=== PATIENT | male | born 1975 | race Caucasian/White ===

== ENCOUNTER 2017-09-09 16:44 | Inpatient (IN) | payer OTHER ==
[~2017-09-09] VITALS: Ht 182.9 cm; Wt 81.7 kg
[2017-09-09 16:45] VITALS: O2SAT 97
[2017-09-09] MEDS ORDERED: DIPHTH/TETANUS/ACEL PERTUSSIS (BOOSTER) 0.5 ML VIAL/PFS IM ONE ×2 (16:49→17:08)
[2017-09-09] MEDS ORDERED: PROPOFOL 200 MG/20 ML AMP ONE (16:49)
[2017-09-09] MEDS ORDERED: LIDOCAINE HCL 2% 50 ML VIAL ONE (16:49)
[2017-09-09] MEDS ORDERED: ceFAZolin 2 GM PREMIX 50 ML ONE (16:49)
[2017-09-09 17:08] LABS: AUTOMATED NEUTROPHIL # 6.1 TH/MM3 (1.8-7.7); BASOPHIL % 0.3 % (0.0-2.0); EOSINOPHIL # 0.1 TH/MM3 (0-0.4); HEMATOCRIT 44.7 % (39.0-51.0); LYMPH % 38.4 % (9.0-44.0); LYMPHOCYTE # 4.3 TH/MM3 (1.0-4.8); MEAN CELL VOLUME 95.2 FL (80.0-100.0); MEAN CORPUSCULAR HEMOGLOBIN 31.9 PG (27.0-34.0); MEAN CORPUSCULAR HGB CONC 33.5 % (32.0-36.0); MEAN PLATELET VOLUME 8.2 FL (7.0-11.0); MONOCYTE # 0.7 TH/MM3 (0-0.9); NEUT % 54.3 % (16.0-70.0); PLATELET COUNT 319 TH/MM3 (150-450); RED BLOOD COUNT 4.69 MIL/MM3 (4.50-5.90); RED CELL DISTRIBUTION WIDTH 13.3 % (11.6-17.2); WHITE BLOOD COUNT 11.3 TH/MM3 (4.0-11.0)
[2017-09-09] MEDS ORDERED: ceFAZolin 2 GM PREMIX 50 ML IV STA (17:08)
[2017-09-09] MEDS ORDERED: NALOXONE HCL 0.4 MG/ML AMP IV PUSH PRN ×2 (17:15)
[2017-09-09] MEDS ORDERED: Post-op Orders (for Pharmacy) XX ONE (17:15)
[2017-09-09] MEDS ORDERED: SODIUM CHLORIDE 0.9% FLUSH 10 ML FLUSH IV FLUSH PRN (17:15)
[2017-09-09] MEDS ORDERED: PROPOFOL 500 MG/50 ML BTL IV ONE (17:15)
[2017-09-09] MEDS ORDERED: oxyCODONE/ACETAMINOPHEN 5 MG/325 MG TAB PO PRN (17:15)
--- NOTE | 2017-09-09 17:19 | PD ---
HPI Chief Complaint: Trauma (Alert) Time Seen by Provider: 16:47 Travel History International Travel<30 days: No Contact w/Intl Traveler<30days: No Traveled to known affect area: No History of Present Illness HPI The patient is a 41-year-old male who presents to the emergency department as a level II trauma alert. According to EMS the patient was inspecting a roof when he fell through a metal roof, approximately 12-18 feet, landing on the top corner of a door. The top quarter the door apparently struck the patient in the left chest wall and then went down across the lower back. The patient then fell to the ground. He denies any loss of consciousness , headache, or neck pain. He does complain of left-sided rib pain and chest pain which shortness of breath. He also complains of lower back pain. He denies any weakness or numbness of the upper or lower extremities. Symptoms are moderate, exacerbated after falling through a roof, and there are no current alleviating factors. Patient was called a level II trauma alert based on press loader discretion and the fact that the patient fell more than 10 feet through a roof. [facility] Past Medical History Medical History: Denies Significant Hx Past Surgical History Surgical History: No Previous Surgery Social History Tobacco Use: No Allergies-Medications (Allergen,Severity, Reaction): Coded Allergies: No Known Allergies (Unverified , 09/09/17) Review of Systems Except as stated in HPI: all other systems reviewed are Neg Eyes: No: Visual changes HENT: No: Headaches, Neck Pain Cardiovascular: Positive: Chest Pain or Discomfort Respiratory: Positive: Shortness of Breath Gastrointestinal: No: Nausea, Vomiting, Abdominal Pain Musculoskeletal: No: Weakness Skin: Positive Other (laceration and abrasion to the back) Neurologic: No: Weakness Psychiatric: No: Substance Abuse Physical Exam Narrative GENERAL: Awake, alert, pleasant 41-year-old male who appears his stated age is in no acute respiratory distress. The patient initially is on a backboard with cervical collar in place. SKIN: Large abrasion over the left thoracic and lumbar region with a superficial laceration over the mid lower back. Abrasion noted over the lateral left shoulder. HEAD: Visible blood at both EACs.. EYES: Pupils equal and round. 4 mm bilateral and reactive. EOMs are intact. ENT: No nasal bleeding or discharge. Blood at the external surface of both EACs. NECK: Trachea midline. No JVD. Cervical collar in place. CARDIOVASCULAR: Regular rate and rhythm. No murmur appreciated. Tenderness to palpation over the left lateral chest wall with noticeable red movement. RESPIRATORY: No accessory muscle use. Diminished breath sounds on the left side. GASTROINTESTINAL: Abdomen soft, non-tender, nondistended. No rebound tenderness , guarding, rigidity.. MUSCULOSKELETAL: No obvious deformities. No clubbing. No cyanosis. No edema. Moves all 4 extremities without difficulty. Back: No tenderness over the thoracic or lumbar vertebrae. Large abrasion noted over the thoracic and lumbar region with laceration noted. NEUROLOGICAL: Awake and alert. No obvious cranial nerve deficits. Motor grossly within normal limits. Normal speech. Nonfocal. Oriented 4. Moves all 4 extremities without difficulty. PSYCHIATRIC: Appropriate mood and affect; insight and judgment normal. Data Data Last Documented VS Vital Signs Date Time Temp Pulse Resp B/P (MAP) Pulse Ox O2 Delivery O2 Flow Rate FiO2 09/09/17 16:45 97 4.00 Orders Orders Cefazolin 2 Gm Premix (Ancef 2 Gm Premix (09/09/17 16:49) Lidocaine 2% Inj (Xylocaine 2% Inj) (09/09/17 16:49) Vxrf-Bcd-Fwkcln (Booster) Inj (Boostrix (09/09/17 16:49) Fentanyl Inj (Fentanyl Inj) (09/09/17 16:49) Propofol 200 Mg/20 Ml Inj (Diprivan 200 (09/09/17 16:49) Fentanyl Inj (Fentanyl Inj) (09/09/17 17:00) I-Stat Profile (09/09/17 16:48) I-Stat Creatinine (09/09/17 16:48) Complete Blood Count With Diff (09/09/17 16:48) Prothrombin Time / Inr (Pt) (09/09/17 16:48) Act Partial Throm Time (Ptt) (09/09/17 16:48) Type And Screen (09/09/17 16:48) Chest, Single Ap (09/09/17 16:48) Pelvis, Ap Only (Routine) (09/09/17 16:48) Ct Brain W/O Iv Contrast(Rout) (09/09/17 16:48) Ct Cerv Spine W/O Contrast (09/09/17 16:48) Ct Abd/Pel W Iv Contrast(Rout) (09/09/17 16:48) Ct Thorax/ Chest W Iv Contrast (09/09/17 16:48) Ct Thor Spine W Iv Contrast (09/09/17 16:48) Ct Lumb Spine W Iv Contrast (09/09/17 16:48) Iv Access Insert/Monitor (09/09/17 16:48) Ecg Monitoring (09/09/17 16:48) Oximetry (09/09/17 16:48) Oxygen Administration (09/09/17 16:48) Ed Poc Ultrasound (09/09/17 16:48) Admit Order (Ed Use Only) (09/09/17 17:01) Labs Laboratory Tests Test 09/09/17 16:49 White Blood Count 11.3 TH/MM3 Red Blood Count 4.69 MIL/MM3 Hemoglobin 15.0 GM/DL Bedside Hemoglobin 14.6 G/DL Hematocrit 44.7 % Bedside Hematocrit 43.0 % Mean Corpuscular Volume 95.2 FL Mean Corpuscular Hemoglobin 31.9 PG Mean Corpuscular Hemoglobin Concent 33.5 % Red Cell Distribution Width 13.3 % Platelet Count 319 TH/MM3 Mean Platelet Volume 8.2 FL Neutrophils (%) (Auto) 54.3 % Lymphocytes (%) (Auto) 38.4 % Monocytes (%) (Auto) 6.0 % Eosinophils (%) (Auto) 1.0 % Basophils (%) (Auto) 0.3 % Neutrophils # (Auto) 6.1 TH/MM3 Lymphocytes # (Auto) 4.3 TH/MM3 Monocytes # (Auto) 0.7 TH/MM3 Eosinophils # (Auto) 0.1 TH/MM3 Basophils # (Auto) 0.0 TH/MM3 CBC Comment DIFF FINAL Differential Comment Prothrombin Time 10.6 SEC Prothromb Time International Ratio 1.0 RATIO Activated Partial Thromboplast Time 22.9 SEC Bedside Sodium 142 MMOL/L Bedside Potassium 3.3 MMOL/L Bedside Chloride 103 MMOL/L Bedside Blood Urea Nitrogen 11 MG/DL Bedside Creatinine 1.0 MG/DL Bedside Glucose 133 MG/DL [facility] Medical Screen Exam Complete: Yes Emergency Medical Condition: Yes Medical Record Reviewed: Yes EKG Prior to Arrival: No Interpretation(s) Chest x-ray reveals multiple left rib fractures with hemothorax Laboratory Tests Test 09/09/17 16:49 White Blood Count 11.3 TH/MM3 Red Blood Count 4.69 MIL/MM3 Hemoglobin 15.0 GM/DL Bedside Hemoglobin 14.6 G/DL Hematocrit 44.7 % Bedside Hematocrit 43.0 % Mean Corpuscular Volume 95.2 FL Mean Corpuscular Hemoglobin 31.9 PG Mean Corpuscular Hemoglobin Concent 33.5 % Red Cell Distribution Width 13.3 % Platelet Count 319 TH/MM3 Mean Platelet Volume 8.2 FL Neutrophils (%) (Auto) 54.3 % Lymphocytes (%) (Auto) 38.4 % Monocytes (%) (Auto) 6.0 % Eosinophils (%) (Auto) 1.0 % Basophils (%) (Auto) 0.3 % Neutrophils # (Auto) 6.1 TH/MM3 Lymphocytes # (Auto) 4.3 TH/MM3 Monocytes # (Auto) 0.7 TH/MM3 Eosinophils # (Auto) 0.1 TH/MM3 Basophils # (Auto) 0.0 TH/MM3 CBC Comment DIFF FINAL Differential Comment Bedside Sodium 142 MMOL/L Bedside Potassium 3.3 MMOL/L Bedside Chloride 103 MMOL/L Bedside Blood Urea Nitrogen 11 MG/DL Bedside Creatinine 1.0 MG/DL Bedside Glucose 133 MG/DL Last Impressions Thoracic Spine CT [id number] Signed Impressions: Service Date/Time: Saturday, September 09, 2017 17:24 - CONCLUSION: Left T12 transverse process fracture and left-sided rib fractures. Small left pneumothorax. Chest tube in place. Primitivo Hayden MD Pelvis X-Ray [id number] Signed Impressions: Service Date/Time: Saturday, September 09, 2017 16:44 - CONCLUSION: 1. No acute fracture or dislocation. Yuan Burton MD Lumbar Spine CT [id number] Signed Impressions: Service Date/Time: Saturday, September 09, 2017 17:24 - CONCLUSION: Multiple left-sided transverse process fractures and multiple spinous process fractures. Central canal diameter within normal limits at all levels. Primitivo Hayden MD Head CT [id number] Signed Impressions: Service Date/Time: Saturday, September 09, 2017 17:12 - CONCLUSION: 1. No acute intracranial abnormality. Yuan Burton MD Chest X-Ray [id number] Signed Impressions: Service Date/Time: Saturday, September 09, 2017 16:44 - CONCLUSION: 1. Multiple displaced left-sided rib fractures with probable small to moderate hemothorax. Yuan Burton MD Chest CT [id number] Signed Impressions: Service Date/Time: Saturday, September 09, 2017 17:24 - CONCLUSION: Multiple left rib fractures pneumothorax or large bore left chest tube small pneumothorax persists Mediastinum intact. Minimal contusion left lung. Isrrael Mcconnell MD FACR Cervical Spine CT [id number] Signed Impressions: Service Date/Time: Saturday, September 09, 2017 17:18 - CONCLUSION: Degenerative changes, negative for fracture. Subcutaneous emphysema arising from the left chest wall. Isrrael Mcconnell MD FACR Abdomen/Pelvis CT [id number] Signed Impressions: Service Date/Time: Saturday, September 09, 2017 17:24 - CONCLUSION: Negative for solid organ injury in spite of trauma to the left chest Left rib fractures and transverse process fractures as described above Pelvis intact. Isrrael Mcconnell MD FACR Differential Diagnosis Differential diagnosis includes multisystem trauma, multiple rib fractures, flail chest, hemothorax, pneumothorax, pulmonary contusion, splenic laceration, laceration, closed head injury, basal skull fracture, contusion, hematoma. Narrative Course ATLS protocol was followed when the patient arrived. The trauma surgeon, Dr. Lamas, was present when the patient arrived. The patient's airway, breathing, circulation were intact. 2 large-bore IVs were established, labs are drawn and sent, the patient was placed on cardiac telemetry monitoring and continuous pulse oximetry monitoring. Chest x-ray and pelvis x-ray were obtained. Chest x-ray reveals multiple rib fractures with hemothorax on the left side of the chest wall. The patient's tetanus shot was updated and he was administered Ancef, fentanyl, Ancef, and IV fluids. The patient was log rolled off the backboard, back was inspected and injuries were noted. I do discussion with the patient regarding conscious sedation for chest tube placement, the patient was agreeable. The patient was placed under conscious sedation with propofol with end-tidal CO2, respiratory therapy, nursing staff at bedside. A chest tube was placed, 32 [place], the left chest wall by the trauma surgeon. The patient tolerated the procedure without difficulty and initially had 400 cc of blood from the chest tube. The patient was then taken to the CT suite for CT the brain, cervical spine, thorax, abdomen/pelvis, thoracic spine, and lumbar spine. The patient was administered fentanyl several times at 50 g increments for continuing pain. Nursing staff made an attempt to notify the to the patient's injuries per his discretion. The patient was admitted to the intensive surgical care unit. Critical Care Narrative Aggregate critical care time was 40 minutes. Time to perform other separately billable procedures was not included in the critical care time. My time did not include minutes spent treating any other patients simultaneously or on activities that did not directly contribute to the patient's treatment. The services I provided to this patient were to treat and/or prevent clinically significant deterioration that could result in: Anoxia, hypoxia, hemothorax, pneumothorax, tension pneumothorax, hemorrhagic shock. I provided critical care services requiring my management, as noted below: Chart data review, documentation time, medication orders and management, vital sign assessments/reviewing monitor data, ordering and reviewing lab tests, ordering and interpreting/reviewing x-rays and diagnostic studies, care of the patient and discussion of the patient with the admitting physicians. Procedures Procedure Narrative After the risks and benefits were discussed the following procedure was performed: MODERATE SEDATION: The patient was placed on a supervisor poultry processing and pulse oximetry. An ambu bag and suction was immediately available at bedside. The patient was monitored by the nurse. Oxygen saturation, heart rate and blood pressure were monitored. Procedural sedation was acheived using 100 mg propofol. The patient was observed until awake and alert. Procedural Sedation time in attendance was 25 minutes. Trauma Alert - Level Two Trauma Alert Level Two: Full trauma team activate, Trauma surgeon called Time Surgeon Called: 16:31 Physician Communication I discussed the patient with the trauma surgeon who agrees with admission to the intensive surgical care unit. Diagnosis Diagnosis: Primary Impression: Hemopneumothorax, left Additional Impressions: Multiple rib fractures Qualified Codes: S22.42XA - Multiple fractures of ribs, left side, initial encounter for closed fracture Lumbar transverse process fracture Qualified Codes: S32.009A - Unspecified fracture of unspecified lumbar vertebra, initial encounter for closed fracture Admitting Physician Requests: Admit Condition: Serious Jimmy Chin MD Sep 09, 2017 17:19
[2017-09-09 17:23] LABS: PROTHROMBIN TIME - PATIENT 10.6 SEC (9.8-11.6)
[2017-09-09] MEDS ORDERED: SODIUM CHLOR 0.9% 1000 ML INJ 1,000 ML IV ONE (17:30)
--- NOTE | 2017-09-09 17:30 | RADRPT ---
EXAM DATE/TIME: 09/09/2017 16:44 [facility] COMPARISON: No previous studies available for comparison. INDICATIONS : Trauma alert. Patient fell from roof today MEDICAL HISTORY : Unobtainable SURGICAL HISTORY : Unobtainable ENCOUNTER: Initial ACUITY: 1 day PAIN SCORE: Non-responsive. LOCATION: Bilateral chest FINDINGS: Diffuse hazy opacity throughout the left hemithorax likely reflecting small to moderate hemothorax. M ultiple displaced left-sided rib fractures. Cardiomediastinal contours are within normal limits given portable technique. CONCLUSION: 1. Multiple displaced left-sided rib fractures with probable small to moderate hemothorax. Yuan Burton MD on September 09, 2017 at 17:25 Board Certified Radiologist. This report was verified electronically.
--- NOTE | 2017-09-09 17:30 | RADRPT ---
EXAM DATE/TIME: 09/09/2017 16:44 [facility] COMPARISON: No previous studies available for comparison. INDICATIONS : Trauma alert. Patient fell from roof today MEDICAL HISTORY : Unobtainable SURGICAL HISTORY : Unobtainable ENCOUNTER: Initial ACUITY: 1 day PAIN SCORE: Non-responsive. LOCATION: Pelvis FINDINGS: A single frontal view of the pelvis demonstrates no evidence of fracture. The bony pelvic ring is in tact. Bony mineralization is normal. The soft tissues are intact. CONCLUSION: 1. No acute fracture or dislocation. Yuan Burton MD on September 09, 2017 at 17:27 Board Certified Radiologist. This report was verified electronically.
--- NOTE | 2017-09-09 17:47 | RADRPT ---
EXAM DATE/TIME: 09/09/2017 17:12 [facility] COMPARISON: No previous studies available for comparison. INDICATIONS : Fall from roof, trauma alert. RADIATION DOSE: 57.41 CTDIvol (mGy) MEDICAL HISTORY : unobtainable SURGICAL HISTORY : unobtainable ENCOUNTER: Initial ACUITY: 1 day PAIN SCALE: 5/10 LOCATION: cranial blood in ear TECHNIQUE: Multiple contiguous axial images were obtained of the head. Using automated exposure control and adj ustment of the mA and/or kV according to patient size, radiation dose was kept as low as reasonably a chievable to obtain optimal diagnostic quality images. DICOM format image data is available electro nically for review and comparison. FINDINGS: CEREBRUM: The ventricles are normal for age. No evidence of midline shift, mass lesion, hemorrhage or acute in farction. No extra-axial fluid collections are seen. POSTERIOR FOSSA: The cerebellum and brainstem are intact. The 4th ventricle is midline. The cerebellopontine angle i s unremarkable. EXTRACRANIAL: The visualized portion of the orbits is intact. Mucop osteal thickening involving the right maxillary sinus. SKULL: The calvaria is intact. No evidence of skull fracture. CONCLUSION: 1. No acute intracranial abnormality. Yuan Burton MD on September 09, 2017 at 17:42 Board Certified Radiologist. This report was verified electronically.
--- NOTE | 2017-09-09 17:51 | RADRPT ---
EXAM DATE/TIME: 09/09/2017 17:24 [facility] COMPARISON: No previous studies available for comparison. INDICATIONS : Fell from roof, trauma alert. IV CONTRAST: 100 cc Omnipaque 350 (iohexol) IV ; Cumulative dose for multiple exams. RADIATION DOSE: 17.94 CTDIvol (mGy) ; Combined studies - Thorax/Abdomen/Pelvis MEDICAL HISTORY : unobtainable SURGICAL HISTORY : unobtainable ENCOUNTER: Initial ACUITY: 1 day PAIN SCALE: 10/10 LOCATION: Left chest TECHNIQUE: Volumetric scanning of the chest was performed. Using automated exposure control and adjustment of t he mA and/or kV according to patient size, radiation dose was kept as low as reasonably achievable to obtain optimal diagnostic quality images. DICOM format image data is available electronically for review and comparison. Follow-up recommendations for detected pulmonary nodules are based at a minimum on nodule size and pa tient risk factors according to Fleischner Society Guidelines. FINDINGS: Subcutaneous emphysema is present posteriorly over the left chest. Large bore chest tube is in place . There is an 8 moderate left pneumothorax persisting. Minimal contusion is evident. The right lung is clear Great vessels are intact There is no pericardial effusion Review of bone windows reveals fractures of the second third fourth and fifth sixth seventh and eight h ninth ribs posteriorly on the left. There are no rib fractures on the right. Thoracic spine appears intact in the AP projection. CONCLUSION: Multiple left rib fractures pneumothorax or large bore left chest tube small pneumothorax persists Mediastinum intact. Minimal contusion left lung. Isrrael Mcconnell MD FACR on September 09, 2017 at 17:46 Board Certified Radiologist. This report was verified electronically.
--- NOTE | 2017-09-09 17:53 | RADRPT ---
EXAM DATE/TIME: 09/09/2017 17:18 [facility] COMPARISON: No previous studies available for comparison. INDICATIONS : Fell from roof.Trauma alert. RADIATION DOSE: 21.67 CTDIvol (mGy) MEDICAL HISTORY : unobtainable SURGICAL HISTORY : unobtainable ENCOUNTER: Initial ACUITY: 1 day PAIN SCALE: 0/10 LOCATION: neck TECHNIQUE: Volumetric scanning of the cervical spine was performed. Multiplanar reconstructions in the sagittal, coronal and oblique axial planes were performed. Using automated exposure control and adjustment o f the mA and/or kV according to patient size, radiation dose was kept as low as reasonably achievable to obtain optimal diagnostic quality images. DICOM format image data is available electronically f or review and comparison. FINDINGS: VERTEBRAE: There is straightening of the normal cervical lordosis ALIGNMENT: No evidence of subluxation. C2-C3: The bony spinal canal is normal in size. No evidence of disc bulge or herniation. The neural forami na are bilaterally patent. C3-C4: Mildly ridging is present with minimal left-sided neuroforamina encroachment C4-C5: The bony spinal canal is normal in size. No evidence of disc bulge or herniation. The neural forami na are bilaterally patent. C5-C6: Mildly ridging is present without fracture. C6-C7: Moderately ridging is present bilateral neural foramen encroachment C7-T1: The bony spinal canal is normal in size. No evidence of disc bulge or herniation. The neural forami na are bilaterally patent. Extensive subcutaneous emphysema is present posteriorly over the left neck from the left chest wall. CONCLUSION: Degenerative changes, negative for fracture. Subcutaneous emphysema arising from the left chest wall. Isrrael Mcconnell MD FACR on September 09, 2017 at 17:49 Board Certified Radiologist. This report was verified electronically.
--- NOTE | 2017-09-09 17:55 | RADRPT ---
EXAM DATE/TIME: 09/09/2017 17:24 [facility] COMPARISON: No previous studies available for comparison. INDICATIONS : Fell from roof, trauma alert. IV CONTRAST: 100 cc Omnipaque 350 (iohexol) IV ; Cumulative dose for multiple exams. ORAL CONTRAST: No oral contrast ingested. RADIATION DOSE: 17.94 CTDIvol (mGy) ; Combined studies - Thorax/Abdomen/Pelvis MEDICAL HISTORY : unobtainable SURGICAL HISTORY : unobtianable ENCOUNTER: Initial ACUITY: 1 day PAIN SCALE: 10/10 LOCATION: Left chest abdomen pelvis TECHNIQUE: Volumetric scanning of the abdomen and pelvis was performed. Using automated exposure control and ad justment of the mA and/or kV according to patient size, radiation dose was kept as low as reasonably achievable to obtain optimal diagnostic quality images. DICOM format image data is available electro nically for review and comparison. FINDINGS: Again seen is the pneumothorax and contusion on the left. Large bore chest tube in good position The liver and spleen are unremarkable. In spite of the trauma to the left chest I don't see splenic contusion Pancreas, adrenals and kidneys unremarkable There is no free fluid. Pelvic contents are unremarkable Review of bone windows reveals fractures of the 10th 11th and 12th ribs. There is fracture of the tr ansverse process of L1, L2 L3-L4. There is the moderate hematoma evidence associated with these frac tures. Vertebral body is intact. CONCLUSION: Negative for solid organ injury in spite of trauma to the left chest Left rib fractures and transverse process fractures as described above Pelvis intact. Isrrael Mcconnell MD FACR on September 09, 2017 at 17:50 Board Certified Radiologist. This report was verified electronically.
[2017-09-09 18:00] VITALS: BP 155/89; PULSE 67; RESP 23; TEMP 97.7; O2SAT 95
--- NOTE | 2017-09-09 18:25 | RADRPT ---
EXAM DATE/TIME: 09/09/2017 17:24 [facility] COMPARISON: No previous studies available for comparison. INDICATIONS : Fall from roof, trauma alert. IV CONTRAST: 100 cc Omnipaque 350 (iohexol) IV RADIATION DOSE: CTDIvol (mGy) ; Reconstructed from previous dataset, no dose MEDICAL HISTORY : unobtainable SURGICAL HISTORY : unobtainable ENCOUNTER: Initial ACUITY: 1 day PAIN SCALE: 10/10 LOCATION: Left chest TECHNIQUE: Volumetric scanning of the thoracic spine was performed. Multiplanar reconstructions in the sagittal , coronal and oblique axial planes were performed. Using automated exposure control and adjustment o f the mA and/or kV according to patient size, radiation dose was kept as low as reasonably achievable to obtain optimal diagnostic quality images. DICOM format image data is available electronically fo r review and comparison. FINDINGS: There is a nondisplaced fracture of the left T12 transverse process. Left posterior 11th and 12th rib fractures identified. No other fractures identified. Small left sided pneumothorax and a left-sided chest tube. Dependent atelectasis on the left. Emphysema in the chest wall soft tissues on the left. Small endplate osteophytes at multiple levels of the thoracic spine. Central canal diameter and neura l foraminal diameters within normal limits at all levels. CONCLUSION: Left T12 transverse process fracture and left-sided rib fractures. Small left pneumothorax. Chest tub e in place. Primitivo Hayden MD on September 09, 2017 at 18:10 Board Certified Radiologist. This report was verified electronically.
[2017-09-09] MEDS ORDERED: IOHEXOL 350 MG/ML 10 ML VIAL (for RAD DIAG) IVCONTRAST ONE (18:27)
--- NOTE | 2017-09-09 18:37 | RADRPT ---
EXAM DATE/TIME: 09/09/2017 17:24 [facility] COMPARISON: No previous studies available for comparison. INDICATIONS : Fall from roof, trauma alert. IV CONTRAST: 100 cc Omnipaque 350 (iohexol) IV RADIATION DOSE: CTDIvol (mGy) ; Reconstructed from previous dataset, no dose MEDICAL HISTORY : unobtianable SURGICAL HISTORY : unobtainable ENCOUNTER: Initial ACUITY: 1 day PAIN SCALE: 10/10 LOCATION: low back TECHNIQUE: Volumetric scanning of the lumbar spine was performed. Multiplanar reconstructions in the sagittal, coronal and oblique axial planes were performed. Using automated exposure control and adjustment of the mA and/or kV according to patient size, radiation dose was kept as low as reasonably achievable t o obtain optimal diagnostic quality images. DICOM format image data is available electronically for review and comparison. FINDINGS: Fracture of the left transverse process of L1 displays 1 cm. Left transverse process fracture of L2 w ith 7 mm displacement. Left transverse process fracture of L3 with 1 cm displacement. Left transverse process fracture of L4 with 1.6 cm displacement. Left transverse process fracture of L5 with 1 cm di splacement. Nondisplaced spinous process fractures of L2, L3, and L4 noted. Transitional vertebral body labeled S1. Broad-based disc bulge of L5-S1. Mild right neural foraminal narrowing at this level. Central canal d iameter is within normal limits at all levels. CONCLUSION: Multiple left-sided transverse process fractures and multiple spinous process fractures. Central alin l diameter within normal limits at all levels. Primitivo Hayden MD on September 09, 2017 at 18:30 Board Certified Radiologist. This report was verified electronically.
--- NOTE | 2017-09-09 18:47 | MH ---
cc: MD [facility] DATE OF ADMISSION: 09/09/2017 ADMITTING DIAGNOSIS: Fall off a roof with left chest trauma. 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 The patient was apparently awake and alert at the scene. He was transferred to our institution as a Priority Two Trauma Alert based on the history. I came down and we ran it as a Level I Trauma Alert nonetheless. On arrival the patient is awake and alert and oriented on a spinal board complaining about severe pain in his left chest. PAST MEDICAL HISTORY: His past medical history is negative. PAST SURGICAL HISTORY: His past surgical history is negative. ALLERGIES: NO ALLERGIES. MEDICATIONS: No medications. SOCIAL HISTORY: The patient is again fully employed. PHYSICAL EXAMINATION: GENERAL: The physical examination reveals a 41-year-old male in acute distress due to the pain. HEAD, EYES, EARS, NOSE, THROAT: Normocephalic. No trauma to the head. Some blood in both ears but I do not see any injury to the ear canals,. Some bruising over the head laterally, maybe that is where it was from. No hemotympanum. No fleming sign. No raccoon eyes. The tympanic membranes are completely intact. NECK: Bilateral carotid pulses. No bruits. No signs of trauma to the neck. C-collar is gently repositioned. CHEST: Unilateral breath sounds on the right and very weak on the left. Dullness on percussion of the left chest as well as some crepitus and crepitations from the rib fractures of the lower ribs, probably starting with the fourth rib down. The patient clearly has a hemothorax. ABDOMEN: The abdomen is soft. Normoactive bowel sounds. No rebound. No guarding. I do not suspect a splenic injury because the injury to the chest is a little higher than that, but then again, could be. PELVIS: The pelvis is stable. EXTREMITIES: The patient has bilateral femoral, poplitea, dorsalis pedis and posterior tibial pulses. BACK: The patient was log-rolled sideways to examine the back. He has deep road rash and sort of shallow lacerations over the left flank higher up consistent with hitting this door. No deformities otherwise. NEUROLOGIC: El Coma Scale is 15. The patient has full motor and sensory perception and motion. Deep tendon reflexes are normal. No pathologic reflexes. No lateralization. PRIORITY RESUSCITATION: The patient was resuscitated according to trauma principles. Primary and secondary survey, resuscitation, definitive care was carried out. Upon obtaining a chest x-ray coupled with the clinical exam, immediate left chest tube was placed and about 500 cc of dark blood was obtained. The lung expanded readily. The patient was then taken to CT scan for further studies. The patient is admitted to the intensive care unit. CRITICAL CARE TIME: Forty (40) minutes. Angelic CHAPMAN/RYAN /6:20 PM /6:33 PM
--- NOTE | 2017-09-09 19:14 | HHI.CCPN ---
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 The patient was apparently awake and alert at the scene. He was transferred to our institution as a Priority Two Trauma Alert based on the history. I came down and we ran it together as a Level I Trauma Alert nonetheless. Patient underwent resuscitation according to the trauma principles and was diagnosed with left hemopneumothorax and immediately chest tube was placed CT scan performed Final injuries Left hemopneumothorax with serial rib fractures T12 spinous process fracture L1-L2 L3 L4 L5 left transverse process fracture Objective Vital Signs Date Time Temp Pulse Resp B/P (MAP) Pulse Ox O2 Delivery O2 Flow Rate FiO2 09/09/17 16:45 97 4.00 Result Diagram: 09/09/171648 Imaging Last 24 hours Impressions Thoracic Spine CT 09/09/171647 Signed Impressions: Service Date/Time: Saturday, September 09, 2017 17:24 - CONCLUSION: Left T12 transverse process fracture and left-sided rib fractures. Small left pneumothorax. Chest tube in place. Primitivo Hayden MD Pelvis X-Ray 09/09/171647 Signed Impressions: Service Date/Time: Saturday, September 09, 2017 16:44 - CONCLUSION: 1. No acute fracture or dislocation. Yuan Burton MD Lumbar Spine CT 09/09/171647 Signed Impressions: Service Date/Time: Saturday, September 09, 2017 17:24 - CONCLUSION: Multiple left-sided transverse process fractures and multiple spinous process fractures. Central canal diameter within normal limits at all levels. Primitivo Hayden MD Head CT 09/09/171647 Signed Impressions: Service Date/Time: Saturday, September 09, 2017 17:12 - CONCLUSION: 1. No acute intracranial abnormality. Yuan Burton MD Chest X-Ray 09/09/171647 Signed Impressions: Service Date/Time: Saturday, September 09, 2017 16:44 - CONCLUSION: 1. Multiple displaced left-sided rib fractures with probable small to moderate hemothorax. Yuan Burton MD Chest CT 09/09/171647 Signed Impressions: Service Date/Time: Saturday, September 09, 2017 17:24 - CONCLUSION: Multiple left rib fractures pneumothorax or large bore left chest tube small pneumothorax persists Mediastinum intact. Minimal contusion left lung. Isrrael Mcconnell MD FACR Cervical Spine CT 09/09/17 1648 Signed Impressions: Service Date/Time: Saturday, September 09, 2017 17:18 - CONCLUSION: Degenerative changes, negative for fracture. Subcutaneous emphysema arising from the left chest wall. Isrrael Mcconnell MD FACR Abdomen/Pelvis CT 09/09/17 [id number] Signed Impressions: Service Date/Time: Saturday, September 09, 2017 17:24 - CONCLUSION: Negative for solid organ injury in spite of trauma to the left chest Left rib fractures and transverse process fractures as described above Pelvis intact. Isrrael Mcconnell MD FACAngelic Gauthier MD Sep 09, 2017 19:14
[2017-09-09] MEDS: SODIUM CHLOR 0.9% 1000 ML INJ 1,000 ML IV SCH (19:16)
[2017-09-09] MEDS: HYDROmorphone HCL PCA 6 MG/30 ML IV SCH ×2 (19:17→22:23)
--- NOTE | 2017-09-09 19:57 | PD.CONS ---
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 The top quarter the door apparently struck the patient in the left chest wall and then went down across the lower back. The patient then fell to the ground. He denies any loss of consciousness, headache, or neck pain. He does complain of left-sided rib pain and chest pain which shortness of breath. He also complains of lower back pain. He denies any weakness or numbness of the upper or lower extremities. In the emergency department the chest x-ray shows multiple rib fractures and pneumothorax for which he received the chest tube at the trauma bay. Review of Systems Constitutional: DENIES: Diaphoretic episodes, Fatigue, Fever, Weight gain, Weight loss, Chills, Dizziness, Change in appetite, Night Sweats Endocrine: DENIES: Heat/cold intolerance, Polydipsia, Polyuria, Polyphagia Eyes: DENIES: Blurred vision, Diplopia, Eye inflammation, Eye pain, Vision loss , Photosensitivity, Double Vision Ears, nose, mouth, throat: DENIES: Tinnitus, Hearing loss, Vertigo, Nasal discharge, Oral lesions, Throat pain, Hoarseness, Ear Pain, Running Nose, Epistaxis, Sinus Pain, Toothache, Odynophagia Respiratory: DENIES: Apneas, Cough, Snoring, Wheezing, Hemoptysis, Sputum production, Shortness of breath Cardiovascular: COMPLAINS OF: Chest pain, DENIES: Palpitations, Syncope, Dyspnea on Exertion, PND, Lower Extremity Edema, Orthopnea, Claudication Gastrointestinal: DENIES: Abdominal pain, Black stools, Bloody stools, Constipation, Diarrhea, Nausea, Vomiting, Difficulty Swallowing, Anorexia Genitourinary: DENIES: Sexual dysfunction, Urinary frequency, Urinary incontinence, Urgency, Hematuria, Dysuria, Nocturia, Penile Discharge, Testicular Pain, Testicular Swelling Musculoskeletal: DENIES: Joint pain, Muscle aches, Stiffness, Joint Swelling, Back pain, Neck pain Integumentary: DENIES: Abnormal pigmentation, Nail changes, Pruritus, Rash Hematologic/lymphatic: DENIES: Bruising, Lymphadenopathy Immunologic/allergic: DENIES: Eczema, Urticaria Neurologic: DENIES: Abnormal gait, Headache, Localized weakness, Paresthesias, Seizures, Speech Problems, Tremor, Poor Balance Psychiatric: DENIES: Anxiety, Confusion, Mood changes, Depression, Hallucinations, Agitation, Suicidal Ideation, Homicidal Ideation, Delusions Past Family Social History Allergies: Coded Allergies: No Known Allergies (Unverified , 09/09/17) Past Medical History Headaches SI joint arthritis Past Surgical History Stem cells injection into SI joint Active Ordered Medications Current Medications Medications (Trade) Dose Ordered Sig/Lacho Route PRN Reason Start Time Stop Time Status Last Admin Dose Admin Sodium Chloride 1,000 ml @ 100 mls/hr Q10H IV 09/09/17 17:12 09/09/17 19:16 Sodium Chloride (NS Flush) 2 ml UNSCH PRN IV FLUSH FLUSH AFTER USING IV ACCESS 09/09/17 17:15 Sodium Chloride (NS Flush) 2 ml BID IV FLUSH 09/09/17 21:00 Ondansetron HCl (Zofran Inj) 4 mg Q6H PRN IV PUSH NAUSEA OR VOMITING 09/09/17 17:15 09/09/17 22:10 Famotidine (Pepcid) 20 mg BID PO 09/09/17 21:00 Cefazolin Sodium 1000 mg/Sodium Chloride 100 ml @ 200 mls/hr Q8H IV 09/10/17 01:00 09/10/17 17:29 09/10/17 02:16 Oxycodone/ Acetaminophen (Percocet 5-325 Mg) 1 tab Q4H PRN PO breakthrough 09/09/17 17:15 09/09/17 22:09 Naloxone HCl (Narcan Inj) 0.4 mg UNSCH PRN IV PUSH RESPIRATORY RATE LESS THAN 10 09/09/17 17:15 Hydromorphone HCl (Dilaudid CLINICAL ASST Inj) 6 mg UNSCH IV 09/09/17 17:15 09/09/17 22:23 CLINICAL ASST Dosage Infused (Pha) 1 Q8HR OTHER 09/09/17 22:00 09/09/17 22:00 Methocarbamol (Robaxin) 500 mg Q8HR PO 09/09/17 22:00 09/09/17 21:11 Senna/Docusate Sodium (Diana-Colace) 1 tab BID PO 09/10/17 09:00 Lactulose (Lactulose Liq) 30 ml DAILY PRN PO No BM in 2 days 09/09/17 22:30 Polyethylene Glycol (Miralax) 17 gm DAILY PO 09/10/17 09:00 Diphenhydramine HCl (Benadryl Inj) 25 mg Q6H PRN IV PUSH itching 09/09/17 22:30 Albuterol/ Ipratropium (Duoneb Neb) 1 ampule Q4HR WHILE AWAKE NEB NEB 09/10/17 08:00 Family History No family history significant of early coronary artery disease or malignancy Social History Denies alcohol, tobacco, or illicit drug abuse Physical Exam Vital Signs Vital Signs Date Time Temp Pulse Resp B/P (MAP) Pulse Ox O2 Delivery O2 Flow Rate FiO2 09/09/17 19:17 20 09/09/17 18:00 97.7 67 23 155/89 (111) 95 09/09/17 18:00 98 Nasal Cannula 4.00 09/09/17 16:45 97 4.00 09/09/17 16:45 97 Physical Exam GENERAL: Well-nourished, well-developed patient. SKIN: Warm and dry. HEAD: Normocephalic. EYES: No scleral icterus. No injection or drainage. NECK: Supple, trachea midline. No JVD or lymphadenopathy. CARDIOVASCULAR: Regular rate and rhythm without murmurs, gallops, or rubs. RESPIRATORY: Breath sounds equal bilaterally. No accessory muscle use. Chest tube in place GASTROINTESTINAL: Abdomen soft, non-tender, nondistended. MUSCULOSKELETAL: No cyanosis, or edema. BACK: Nontender without obvious deformity. NEURO EXAM: GCS: 15 Mental Status: The patient is alert and oriented to person, place, and time with normal speech. Cranial Nerves: Visual acuity intact bilaterally. Visual ta normal in all quadrants. Pupils are round, reactive to light. Extraocular movements are intact without ptosis. Hearing is normal bilaterally. Voice is normal. Tongue protrudes midline and moves symmetrically. Reflexes: Biceps, patellar, and Achilles are 2/4 bilaterally. No clonus. Sensation: Sensation is intact bilaterally to pain and light touch. Two-point discrimination is intact. Motor: Good muscle tone. Strength is 5/5 bilaterally. Cerebellar: [id number] and [id number] test normal bilaterally. Laboratory Laboratory Tests Test 09/09/17 16:49 White Blood Count 11.3 Red Blood Count 4.69 Hemoglobin 15.0 Bedside Hemoglobin 14.6 Hematocrit 44.7 Bedside Hematocrit 43.0 Mean Corpuscular Volume 95.2 Mean Corpuscular Hemoglobin 31.9 Mean Corpuscular Hemoglobin Concent 33.5 Red Cell Distribution Width 13.3 Platelet Count 319 Mean Platelet Volume 8.2 Neutrophils (%) (Auto) 54.3 Lymphocytes (%) (Auto) 38.4 Monocytes (%) (Auto) 6.0 Eosinophils (%) (Auto) 1.0 Basophils (%) (Auto) 0.3 Neutrophils # (Auto) 6.1 Lymphocytes # (Auto) 4.3 Monocytes # (Auto) 0.7 Eosinophils # (Auto) 0.1 Basophils # (Auto) 0.0 CBC Comment DIFF FINAL Differential Comment Prothrombin Time 10.6 Prothromb Time International Ratio 1.0 Activated Partial Thromboplast Time 22.9 Bedside Sodium 142 Bedside Potassium 3.3 Bedside Chloride 103 Bedside Blood Urea Nitrogen 11 Bedside Creatinine 1.0 Bedside Glucose 133 Result Diagram: 09/09/171648 Imaging Last 24 hours Impressions Thoracic Spine CT 09/09/171647 Signed Impressions: Service Date/Time: Saturday, September 09, 2017 17:24 - CONCLUSION: Left T12 transverse process fracture and left-sided rib fractures. Small left pneumothorax. Chest tube in place. Primitivo Hayden MD Pelvis X-Ray 09/09/171647 Signed Impressions: Service Date/Time: Saturday, September 09, 2017 16:44 - CONCLUSION: 1. No acute fracture or dislocation. Yuan Burton MD Lumbar Spine CT 09/09/171647 Signed Impressions: Service Date/Time: Saturday, September 09, 2017 17:24 - CONCLUSION: Multiple left-sided transverse process fractures and multiple spinous process fractures. Central canal diameter within normal limits at all levels. Primitivo Hayden MD Head CT 09/09/171647 Signed Impressions: Service Date/Time: Saturday, September 09, 2017 17:12 - CONCLUSION: 1. No acute intracranial abnormality. Yuan Burton MD Chest X-Ray 09/09/171647 Signed Impressions: Service Date/Time: Saturday, September 09, 2017 16:44 - CONCLUSION: 1. Multiple displaced left-sided rib fractures with probable small to moderate hemothorax. Yuan Burton MD Chest CT 09/09/171647 Signed Impressions: Service Date/Time: Saturday, September 09, 2017 17:24 - CONCLUSION: Multiple left rib fractures pneumothorax or large bore left chest tube small pneumothorax persists Mediastinum intact. Minimal contusion left lung. Isrrael Mcconnell MD FACR Cervical Spine CT 09/09/17 1648 Signed Impressions: Service Date/Time: Saturday, September 09, 2017 17:18 - CONCLUSION: Degenerative changes, negative for fracture. Subcutaneous emphysema arising from the left chest wall. Isrrael Mcconnell MD FACR Abdomen/Pelvis CT 09/09/17 1648 Signed Impressions: Service Date/Time: Saturday, September 09, 2017 17:24 - CONCLUSION: Negative for solid organ injury in spite of trauma to the left chest Left rib fractures and transverse process fractures as described above Pelvis intact. Isrrael Mcconnell MD FACR Septic Shock Reassessment Septic shock perfusion: reassessment completed Assessment and Plan Assessment and Plan Left-sided pneumothorax - Large bore chest tube placed by trauma surgeon - CXR a.m. - Management per trauma Multiple rib fractures - Pain control - Chest PT as tolerated - Incentive spirometer while awake Multiple left-sided transverse process fractures and multiple spinous process fractures - Neurosurgery consultation DVT GI prophylaxis - Teds SCDs - Early aggressive mobilization - Regular diet - Pharmacological prophylaxis per trauma surgeon Critical Care: The total critical care time was 35 minutes. Time to perform other separately billable procedures was not included in the critical care time. Riley Khanna MD Sep 09, 2017 7:57 pm
[2017-09-09 20:00] VITALS: BP 119/71; PULSE 77; RESP 20; TEMP 97.7; O2SAT 100
[2017-09-09] MEDS: FAMOTIDINE 20 MG TAB PO SCH (21:00)
[2017-09-09] MEDS: SODIUM CHLORIDE 0.9% FLUSH 10 ML FLUSH IV FLUSH SCH (21:00)
[2017-09-09] MEDS ORDERED: DOCUSATE SODIUM 100 MG CAP PO SCH (21:00)
[2017-09-09] MEDS: METHOCARBAMOL 500 MG TAB PO SCH (21:11)
[2017-09-09 21:25] VITALS: O2SAT 100
[2017-09-09 22:00] VITALS: PULSE 84
[2017-09-09] MEDS: PCA - TOTAL MG DILAUDID DELIVERED PER SHIFT OTHER SCH (22:00)
[2017-09-09] MEDS: ONDANSETRON HCL 4 MG/2 ML VIAL IV PUSH PRN (22:10)
[2017-09-09] MEDS ORDERED: LACTULOSE SYRUP 20 GM/30 ML CUP PO PRN (22:30)
[2017-09-09] MEDS ORDERED: diphenhydrAMINE HCL 50 MG/ML VIAL IV PUSH PRN (22:30)
[2017-09-10] VITALS (10 sets, daily range): BP systolic 118–154; BP diastolic 60–90; PULSE 68–100; RESP 16–26; TEMP 97.9–99.1; O2SAT 97–100
[2017-09-10] MEDS: HYDROmorphone HCL PCA 6 MG/30 ML IV SCH ×2 (03:47→09:11)
[2017-09-10] MEDS: SODIUM CHLOR 0.9% 1000 ML INJ 1,000 ML IV SCH (04:15)
[2017-09-10] MEDS: METHOCARBAMOL 500 MG TAB PO SCH ×3 (05:04→22:30)
--- NOTE | 2017-09-10 05:32 | RADRPT ---
EXAM DATE/TIME: 09/10/2017 04:15 [facility] COMPARISON: CHEST SINGLE AP, September 09, 2017, 16:44. INDICATIONS : Hemothorax. MEDICAL HISTORY : None. SURGICAL HISTORY : None. ENCOUNTER: Subsequent ACUITY: 2 days PAIN SCORE: 10/10 LOCATION: Left chest FINDINGS: Left chest tube in place. Small left apical pneumothorax with 5 mm of separation. Right lung is clear . There is mild atelectasis in the left lung base. No significant pleural effusions. Heart size is st able. The bony structures are stable. Multiple left-sided rib fractures without significant change. CONCLUSION: 1. Left chest tube in place with small left apical pneumothorax with 5 mm of separation. 2. No significant change in the multiple left-sided rib fractures. Thomas Cabezas MD on September 10, 2017 at 5:29 Board Certified Radiologist. This report was verified electronically.
[2017-09-10] MEDS: PCA - TOTAL MG DILAUDID DELIVERED PER SHIFT OTHER SCH ×2 (06:00→17:53)
[2017-09-10 07:36] LABS: AUTOMATED NEUTROPHIL # 10.7 TH/MM3 (1.8-7.7); BASOPHIL % 0.1 % (0.0-2.0); EOSINOPHIL % 0.1 % (0.0-4.0); HEMATOCRIT 38.4 % (39.0-51.0); HEMOGLOBIN 13.3 GM/DL (13.0-17.0); LYMPHOCYTE # 1.6 TH/MM3 (1.0-4.8); MEAN CELL VOLUME 94.9 FL (80.0-100.0); MEAN CORPUSCULAR HEMOGLOBIN 32.8 PG (27.0-34.0); MEAN CORPUSCULAR HGB CONC 34.5 % (32.0-36.0); MEAN PLATELET VOLUME 8.7 FL (7.0-11.0); MONOCYTE # 1.2 TH/MM3 (0-0.9); NEUT % 78.8 % (16.0-70.0); PLATELET COUNT 241 TH/MM3 (150-450); RED BLOOD COUNT 4.05 MIL/MM3 (4.50-5.90); RED CELL DISTRIBUTION WIDTH 13.2 % (11.6-17.2); WHITE BLOOD COUNT 13.6 TH/MM3 (4.0-11.0)
[2017-09-10 07:58] LABS: BICARBONATE 26.1 MEQ/L (21.0-32.0); CALCIUM 8.1 MG/DL (8.5-10.1); CREATININE 0.96 MG/DL (0.60-1.30)
[2017-09-10] MEDS: SODIUM CHLORIDE 0.9% FLUSH 10 ML FLUSH IV FLUSH SCH ×2 (09:00→21:00)
[2017-09-10] MEDS: DOCUSATE SODIUM 50 MG/SENNA 8.6 MG TAB PO SCH ×2 (09:00→22:30)
[2017-09-10] MEDS: POLYETHYLENE GLYCOL 17 GM PKG PO SCH (09:00)
[2017-09-10] MEDS: FAMOTIDINE 20 MG TAB PO SCH ×2 (09:11→22:36)
[2017-09-10] MEDS: RESP: ALBUTEROL 2.5 MG/IPRATROPIUM 0.5 MG NEB (SCH) NEB ×3 (09:31→19:31)
[2017-09-10] MEDS: ONDANSETRON HCL 4 MG/2 ML VIAL IV PUSH PRN ×2 (09:32→17:55)
--- NOTE | 2017-09-10 11:23 | HHI.CCPN ---
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 The top quarter the door apparently struck the patient in the left chest wall and then went down across the lower back. The patient then fell to the ground. He denies any loss of consciousness, headache, or neck pain. He does complain of left-sided rib pain and chest pain which shortness of breath. He also complains of lower back pain. He denies any weakness or numbness of the upper or lower extremities. In the emergency department the chest x-ray shows multiple rib fractures and pneumothorax for which he received the chest tube at the trauma bay. 09/10: Left lung well expanded and thorax well evacuated. Pain control acceptable. Objective Vital Signs Date Time Temp Pulse Resp B/P (MAP) Pulse Ox O2 Delivery O2 Flow Rate FiO2 09/10/17 09:11 33 09/10/17 06:00 87 09/10/17 04:00 98.1 122/71 (88) 100 09/09/17 21:25 Nasal Cannula 2.00 Intake and Output 09/10/17 09/10/17 09/11/17 08:00 16:00 00:00 Intake Total 2100 ml Output Total 1800 ml Balance 300 ml Result Diagram: 09/10/1761109/10/17611 Imaging Last 24 hours Impressions Thoracic Spine CT 09/09/171647 Signed Impressions: Service Date/Time: Saturday, September 09, 2017 17:24 - CONCLUSION: Left T12 transverse process fracture and left-sided rib fractures. Small left pneumothorax. Chest tube in place. Primitivo Hayden MD Pelvis X-Ray 09/09/171647 Signed Impressions: Service Date/Time: Saturday, September 09, 2017 16:44 - CONCLUSION: 1. No acute fracture or dislocation. Yuan Burton MD Lumbar Spine CT 09/09/171647 Signed Impressions: Service Date/Time: Saturday, September 09, 2017 17:24 - CONCLUSION: Multiple left-sided transverse process fractures and multiple spinous process fractures. Central canal diameter within normal limits at all levels. Primitivo Hayden MD Head CT 09/09/171647 Signed Impressions: Service Date/Time: Saturday, September 09, 2017 17:12 - CONCLUSION: 1. No acute intracranial abnormality. Yuan Burton MD Chest X-Ray 09/09/171647 Signed Impressions: Service Date/Time: Saturday, September 09, 2017 16:44 - CONCLUSION: 1. Multiple displaced left-sided rib fractures with probable small to moderate hemothorax. Yuan Burton MD Chest CT 09/09/171647 Signed Impressions: Service Date/Time: Saturday, September 09, 2017 17:24 - CONCLUSION: Multiple left rib fractures pneumothorax or large bore left chest tube small pneumothorax persists Mediastinum intact. Minimal contusion left lung. Isrrael Mcconnell MD FACR Cervical Spine CT 09/09/171647 Signed Impressions: Service Date/Time: Saturday, September 09, 2017 17:18 - CONCLUSION: Degenerative changes, negative for fracture. Subcutaneous emphysema arising from the left chest wall. Isrrael Mcconnell MD FACR Abdomen/Pelvis CT 09/09/171647 Signed Impressions: Service Date/Time: Saturday, September 09, 2017 17:24 - CONCLUSION: Negative for solid organ injury in spite of trauma to the left chest Left rib fractures and transverse process fractures as described above Pelvis intact. Isrrael Mcconenll MD FACR Objective Remarks GENERAL: Well-nourished, well-developed patient. SKIN: Warm and dry. HEAD: Normocephalic. NECK: Supple, trachea midline. Airway widely patent. CARDIOVASCULAR: Regular rate and rhythm without murmurs, gallops, or rubs. No JVD. RESPIRATORY: Breath sounds equal bilaterally. No accessory muscle use. Chest tube in place GASTROINTESTINAL: Abdomen soft, non-tender, nondistended. BS active. MUSCULOSKELETAL: No cyanosis, or edema. Well perfused. NEURO EXAM: Motor: Good muscle tone. Strength is 5/5 bilaterally. Conversant. A/P Assessment and Plan Left-sided pneumothorax - Large bore chest tube placed by trauma surgeon - CXR a.m. - Management per trauma Multiple rib fractures - Pain control - Chest PT as tolerated - Incentive spirometer while awake Multiple left-sided transverse process fractures and multiple spinous process fractures - Neurosurgery consultation DVT GI prophylaxis - Teds SCDs - Early aggressive mobilization - Regular diet - Pharmacological prophylaxis per trauma surgeon Overall impression: Acceptable and stable respiratory function. Hansel Thao MD Sep 10, 2017 11:23
--- NOTE | 2017-09-10 14:23 | MP ---
cc: ANGELIC MOORE MD DATE OF SURGERY 09/09/2017 PREOPERATIVE DIAGNOSIS Left-sided hemopneumothorax. Fall. POSTOPERATIVE DIAGNOSIS Left-sided hemopneumothorax. Fall. OPERATIVE PROCEDURE Left chest tube placement. SURGEON MD Cydney ANESTHESIA 1% Xylocaine and sedation with fentanyl and propofol. ESTIMATED BLOOD LOSS Minimal. PROCEDURE The patient is prepped and draped in the usual fashion, the area filtrated with 1% Xylocaine. Then incision made in the midaxillary line at about the fifth intercostal space, deepened down through the tissues with a hemostat and a 32 chest tube placed in the posterior sulcus. About 500 cc of old blood was obtained. The chest tube is sutured in place with 0-silk and chest x-ray repeated. Angelic CHAPMAN/SUNI /6:24 PM /1:59 PM
--- NOTE | 2017-09-10 18:32 | HHI.CCPN ---
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 The patient was apparently awake and alert at the scene. He was transferred to our institution as a Priority Two Trauma Alert based on the history. I came down and we ran it together as a Level I Trauma Alert nonetheless. Patient underwent resuscitation according to the trauma principles and was diagnosed with left hemopneumothorax and immediately chest tube was placed CT scan performed Final injuries Left hemopneumothorax with serial rib fractures T12 spinous process fracture L1-L2 L3 L4 L5 left transverse process fracture 24 Hour Review/Hospital Course 09/10/17 Patient has been doing well through the night Awake alert oriented neurologically fully intact Hemodynamically patient is stable and hemoglobin remains stable Bilateral breath sounds somewhat splinting the left side and still in significant discomfort however well controlled with Dilaudid PREDATORY ANIMAL TRAPPER Abdomen soft on regular diet Plan Out of bed Aggressive physical therapy and respiratory therapy Transfer to floor when bed available Objective Vital Signs Date Time Temp Pulse Resp B/P (MAP) Pulse Ox O2 Delivery O2 Flow Rate FiO2 09/10/17 17:53 20 09/10/17 16:18 98.8 69 130/80 (97) 99 09/10/17 11:37 21 09/10/17 07:00 Nasal Cannula 2.00 Intake and Output 09/10/17 09/10/17 09/11/17 08:00 16:00 00:00 Intake Total 2100 ml 100 ml 589 ml Output Total 1800 ml 580 ml Balance 300 ml 100 ml 9 ml Result Diagram: 09/10/1761109/10/17611 Imaging Last 24 hours Impressions Chest X-Ray 09/10/17 06 Signed Impressions: Service Date/Time: Sunday, September 10, 2017 04:15 - CONCLUSION: 1. Left chest tube in place with small left apical pneumothorax with 5 mm of separation. 2. No significant change in the multiple left-sided rib fractures. 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 Awake alert oriented neurologically fully intact Hemodynamic/Cardiac Hemodynamically patient is stable and hemoglobin remains stable Pulmonary/Respiratory Bilateral breath sounds somewhat splinting the left side and still in significant discomfort however well controlled with Dilaudid PREDATORY ANIMAL TRAPPER Chest tube total 700 cc of blood and starting to clear up a little bit now more serosanguineous than yesterday Abdomen/GI Nutrition Abdomen soft on regular diet Plan Out of bed Aggressive physical therapy and respiratory therapy Transfer to floor when bed available Assessment and Plan Attestation Critical care 32 minutes Angelic Lamas MD Sep 10, 2017 18:32
[2017-09-10] MEDS: ENOXAPARIN SODIUM 40 MG/0.4 ML SYRINGE SQ SCH ×3 (18:45→22:31)
[2017-09-11] VITALS (11 sets, daily range): BP systolic 123–162; BP diastolic 72–93; PULSE 73–97; RESP 17–24; TEMP 96.4–99.3; O2SAT 91–100
[2017-09-11] MEDS: HYDROmorphone HCL PCA 6 MG/30 ML IV SCH (03:21)
[2017-09-11] MEDS: SUMAtriptan SUCCINATE 25 MG TAB PO PRN ×2 (03:23→16:23)
--- NOTE | 2017-09-11 05:43 | RADRPT ---
EXAM DATE/TIME: 09/11/2017 03:55 [facility] COMPARISON: CHEST SINGLE AP, September 10, 2017, 4:15. INDICATIONS : Hemothorax MEDICAL HISTORY : None. SURGICAL HISTORY : None. ENCOUNTER: Subsequent ACUITY: 3 days PAIN SCORE: 5/10 LOCATION: Left chest FINDINGS: Stable tiny left apical pneumothorax measuring 6 mm. Left chest tube remains in place. Right lung fie lds remain clear. No change in the multiple left-sided rib fractures. Heart size is stable. No signif icant pleural effusions. CONCLUSION: No significant interval change. Stable tiny left apical pneumothorax. Thomas Cabezas MD on September 11, 2017 at 5:39 Board Certified Radiologist. This report was verified electronically.
[2017-09-11] MEDS: PCA - TOTAL MG DILAUDID DELIVERED PER SHIFT OTHER SCH (06:00)
[2017-09-11] MEDS: METHOCARBAMOL 500 MG TAB PO SCH ×3 (06:04→22:00)
[2017-09-11] MEDS: ONDANSETRON HCL 4 MG/2 ML VIAL IV PUSH PRN (06:22)
[2017-09-11 06:40] LABS: BICARBONATE 28.1 MEQ/L (21.0-32.0); CALCIUM 8.4 MG/DL (8.5-10.1); CREATININE 0.67 MG/DL (0.60-1.30)
[2017-09-11 07:48] LABS: AUTOMATED NEUTROPHIL # 10.9 TH/MM3 (1.8-7.7); BASOPHIL % 0.1 % (0.0-2.0); EOSINOPHIL % 0.2 % (0.0-4.0); HEMOGLOBIN 11.8 GM/DL (13.0-17.0); LYMPH % 11.2 % (9.0-44.0); LYMPHOCYTE # 1.5 TH/MM3 (1.0-4.8); MEAN CELL VOLUME 94.5 FL (80.0-100.0); MEAN CORPUSCULAR HEMOGLOBIN 31.9 PG (27.0-34.0); MEAN CORPUSCULAR HGB CONC 33.7 % (32.0-36.0); MONO % 8.1 % (0.0-8.0); MONOCYTE # 1.1 TH/MM3 (0-0.9); NEUT % 80.4 % (16.0-70.0); PLATELET COUNT 151 TH/MM3 (150-450); RED BLOOD COUNT 3.71 MIL/MM3 (4.50-5.90); RED CELL DISTRIBUTION WIDTH 12.8 % (11.6-17.2); WHITE BLOOD COUNT 13.5 TH/MM3 (4.0-11.0)
[2017-09-11] MEDS: RESP: ALBUTEROL 2.5 MG/IPRATROPIUM 0.5 MG NEB (SCH) NEB ×3 (08:17→20:27)
[2017-09-11] MEDS: SODIUM CHLORIDE 0.9% FLUSH 10 ML FLUSH IV FLUSH SCH ×2 (09:00→20:59)
[2017-09-11] MEDS: FAMOTIDINE 20 MG TAB PO SCH ×2 (09:00→19:59)
[2017-09-11] MEDS: DOCUSATE SODIUM 50 MG/SENNA 8.6 MG TAB PO SCH ×2 (09:00→19:59)
[2017-09-11] MEDS: POLYETHYLENE GLYCOL 17 GM PKG PO SCH (09:00)
[2017-09-11] MEDS ORDERED: HYDROmorphone HCL 4 MG TAB PO PRN (09:30)
[2017-09-11] MEDS ORDERED: DEXAMETHASONE SOD PHOS 4 MG/ML VIAL IV PUSH PRN (09:30)
[2017-09-11] MEDS: HYDROmorphone HCL 2 MG TAB PO PRN ×3 (11:00→19:58)
[2017-09-11] MEDS ORDERED: LACTULOSE SYRUP 20 GM/30 ML CUP PO ONE (12:45)
--- NOTE | 2017-09-11 16:36 | HHI.CCPN ---
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 The patient was apparently awake and alert at the scene. He was transferred to our institution as a Priority Two Trauma Alert based on the history. I came down and we ran it together as a Level I Trauma Alert nonetheless. Patient underwent resuscitation according to the trauma principles and was diagnosed with left hemopneumothorax and immediately chest tube was placed CT scan performed Final injuries Left hemopneumothorax with serial rib fractures T12 spinous process fracture L1-L2 L3 L4 L5 left transverse process fracture 24 Hour Review/Hospital Course 09/10/17 Patient has been doing well through the night Awake alert oriented neurologically fully intact Hemodynamically patient is stable and hemoglobin remains stable Bilateral breath sounds somewhat splinting the left side and still in significant discomfort however well controlled with Dilaudid DIPPER AND BAKER Abdomen soft on regular diet Plan Out of bed Aggressive physical therapy and respiratory therapy Transfer to floor when bed available 09/11/17 OOB in chair Complains of nausea with Dilaudid IV, transition to PO Refused bowel meds this AM- educated on importance of use with narcotics Objective Vital Signs Date Time Temp Pulse Resp B/P (MAP) Pulse Ox O2 Delivery O2 Flow Rate FiO2 09/11/17 12:30 96.4 77 18 162/78 (106) 91 09/11/17 08:17 Nasal Cannula 4.00 09/10/17 11:37 21 Intake and Output 09/11/17 09/11/17 09/12/17 08:00 16:00 00:00 Intake Total 760 ml Output Total 550 ml 670 ml Balance 210 ml -670 ml Result Diagram: 09/11/17 0548 09/11/17 0548 Imaging Last 24 hours Impressions Chest X-Ray 09/11/17 0600 Signed Impressions: Service Date/Time: Monday, September 11, 2017 03:55 - CONCLUSION: No significant interval change. Stable tiny left apical pneumothorax. Thomas Cabezas MD Objective Remarks GENERAL: 41 year old well-nourished male OOB in chair in no acute distress. SKIN: Warm and dry. HEAD: Atraumatic. Normocephalic. EYES: Pupils equal and round. No scleral icterus. No injection or drainage. ENT: No nasal bleeding or discharge. Mucous membranes pink and moist. NECK: Trachea midline. No JVD. CARDIOVASCULAR: Regular rate and rhythm. RESPIRATORY: No accessory muscle use. Clear and diminished to auscultation. Breath sounds equal bilaterally. LEFT lateral chest tube secured to pleura vac system at -20cm of suction. No air leak noted. Serosanguineous fluid noted in collection chambers. GASTROINTESTINAL: Abdomen soft, non-tender, nondistended. + BS MUSCULOSKELETAL: Extremities without cyanosis, or edema. No obvious deformities. MAEW, + perused NEUROLOGICAL: Awake and alert. Normal speech. Assessment and Plan Plan [place]: Fell off a roof approximately 12-18 feet, landing on the top corner of a door. No LOC. INJURIES: LEFT rib fxs (2-9) LEFT BOBO/PTX T12 transverse process fx Multiple lumbar transverse and spinous process fxs PMHx: migraines 09/09: LEFT CT placement Diet: Regular Pulm: IS, acapella, EZ-PAP with nebs Pain: Dilaudid PO, Robaxin, PRN Toradol Activity: OOB. PT ordered GI: PO Pepcid Bowel: Diana-colace, Miralax, PRN Lactulose. LBM 0 Refused bowel regimen today, Lactulose x1 DVT: SCDs, Lovenox 40 QD LEFT rib fxs, LEFT BOBO/PTX, T12 transverse process fx, Multiple lumbar transverse and spinous process fxs Supportive care 09/09: LEFT CT placement Continue CT on -20cm sxn Daily CT dressing changes CT drained 1L of serosanguineous fluid in 24 hours Pulmonary toileting Pain control OOB- PT ordered CXR today shows left apical PTX Hgb stable Plan of care d/w patient at RN at bedside. Dr Conley agrees with plan of care. CM consulted to assist with DC planning. Lisa Cline Sep 11, 2017 16:36
[2017-09-11] MEDS: KETOROLAC TROMETHAMINE 30 MG/ML (IVP) VIAL IV PUSH PRN (19:59)
[2017-09-11] MEDS: ENOXAPARIN SODIUM 40 MG/0.4 ML SYRINGE SQ SCH (22:00)
[2017-09-12] VITALS (7 sets, daily range): BP systolic 116–142; BP diastolic 77–83; PULSE 77–91; RESP 18; TEMP 96.2–99.1; O2SAT 96–99
[2017-09-12] MEDS: KETOROLAC TROMETHAMINE 30 MG/ML (IVP) VIAL IV PUSH PRN ×2 (02:34→09:54)
[2017-09-12] MEDS: HYDROmorphone HCL 2 MG TAB PO PRN ×2 (05:43→10:18)
[2017-09-12] MEDS: METHOCARBAMOL 500 MG TAB PO SCH ×3 (05:43→21:32)
[2017-09-12] MEDS: ONDANSETRON HCL 4 MG/2 ML VIAL IV PUSH PRN ×2 (05:43→09:54)
--- NOTE | 2017-09-12 07:15 | RADRPT ---
EXAM DATE/TIME: 09/12/2017 05:29 [facility] COMPARISON: CHEST SINGLE AP, September 11, 2017, 3:55. INDICATIONS : Fell off roof 4 days ago, chest and back pain, evaluate pneumothorax and chest tube left chest MEDICAL HISTORY : None. SURGICAL HISTORY : chest tube ENCOUNTER: Subsequent ACUITY: 4 - 6 days PAIN SCORE: 10/10 LOCATION: Left chest FINDINGS: Left chest tube remains in place. There continues to be a stable tiny left apical pneumothorax with 6 mm of separation. The right lung remains clear and well-aerated. No change in the left-sided rib fra ctures. The heart size is stable. No definite pleural effusions. CONCLUSION: Stable tiny left apical pneumothorax measuring 6 mm. No new or significant changes. Thomas Cabezas MD on September 12, 2017 at 7:12 Board Certified Radiologist. This report was verified electronically.
[2017-09-12] MEDS: POLYETHYLENE GLYCOL 17 GM PKG PO SCH (09:00)
[2017-09-12] MEDS: DOCUSATE SODIUM 50 MG/SENNA 8.6 MG TAB PO SCH ×2 (09:55→21:32)
[2017-09-12] MEDS: FAMOTIDINE 20 MG TAB PO SCH ×2 (09:55→21:32)
[2017-09-12] MEDS: SODIUM CHLORIDE 0.9% FLUSH 10 ML FLUSH IV FLUSH SCH ×2 (09:55→21:32)
[2017-09-12] MEDS: SUMAtriptan SUCCINATE 25 MG TAB PO PRN (10:20)
[2017-09-12] MEDS ORDERED: ACETAMINOPHEN/HYDROcodone 325 MG/7.5 MG TAB PO PRN (11:15)
[2017-09-12] MEDS: RESP: IPRATROPIUM 0.5 MG/2.5 ML NEB NEB SCH ×3 (12:46→20:00)
[2017-09-12] MEDS ORDERED: ACETAMINOPHEN 1000 MG/100 ML 100 ML IV PRN (13:30)
--- NOTE | 2017-09-12 13:34 | HHI.PR ---
Subjective Subjective Notes CXR today still shows apical PTX on LEFT Patient reports he get nauseated with the pain meds and has only been taking Toradol. Very weak when asked to cough. Objective Vitals/I&O Vital Signs Date Time Temp Pulse Resp B/P (MAP) Pulse Ox O2 Delivery O2 Flow Rate FiO2 09/12/17 09:21 98 09/12/17 08:00 97.7 78 18 116/77 (90) 09/12/17 07:43 Room Air 09/11/17 20:52 2.00 09/11/17 20:31 21 Labs Laboratory Tests Test 09/09/17 16:49 09/09/17 22:40 09/11/17 05:48 Bedside Hemoglobin 14.6 G/DL Bedside Hematocrit 43.0 % Prothrombin Time 10.6 SEC Prothromb Time International Ratio 1.0 RATIO Activated Partial Thromboplast Time 22.9 SEC Bedside Sodium 142 MMOL/L Bedside Potassium 3.3 MMOL/L Bedside Chloride 103 MMOL/L Bedside Blood Urea Nitrogen 11 MG/DL Bedside Creatinine 1.0 MG/DL Bedside Glucose 133 MG/DL Nasal Screen MRSA (PCR) MRSA NOT DETECTED White Blood Count 13.5 TH/MM3 Red Blood Count 3.71 MIL/MM3 Hemoglobin 11.8 GM/DL Hematocrit 35.0 % Mean Corpuscular Volume 94.5 FL Mean Corpuscular Hemoglobin 31.9 PG Mean Corpuscular Hemoglobin Concent 33.7 % Red Cell Distribution Width 12.8 % Platelet Count 151 TH/MM3 Mean Platelet Volume 9.0 FL Neutrophils (%) (Auto) 80.4 % Lymphocytes (%) (Auto) 11.2 % Monocytes (%) (Auto) 8.1 % Eosinophils (%) (Auto) 0.2 % Basophils (%) (Auto) 0.1 % Neutrophils # (Auto) 10.9 TH/MM3 Lymphocytes # (Auto) 1.5 TH/MM3 Monocytes # (Auto) 1.1 TH/MM3 Eosinophils # (Auto) 0.0 TH/MM3 Basophils # (Auto) 0.0 TH/MM3 CBC Comment DIFF FINAL Differential Comment Hematology Comments Blood Urea Nitrogen 10 MG/DL Creatinine 0.67 MG/DL Random Glucose 120 MG/DL Calcium Level 8.4 MG/DL Sodium Level 135 MEQ/L Potassium Level 4.5 MEQ/L Chloride Level 102 MEQ/L Carbon Dioxide Level 28.1 MEQ/L Anion Gap 5 MEQ/L Estimat Glomerular Filtration Rate 131 ML/MIN Radiology Last Impressions Chest X-Ray 09/12/17 0600 Signed Impressions: Service Date/Time: Tuesday, September 12, 2017 05:29 - CONCLUSION: Stable tiny left apical pneumothorax measuring 6 mm. No new or significant changes. Thomas Cabezas MD Thoracic Spine CT 09/09/171647 Signed Impressions: Service Date/Time: Saturday, September 09, 2017 17:24 - CONCLUSION: Left T12 transverse process fracture and left-sided rib fractures. Small left pneumothorax. Chest tube in place. Primitivo Hayden MD Pelvis X-Ray [id number]/09/[id number] Signed Impressions: Service Date/Time: Saturday, September 09, 2017 16:44 - CONCLUSION: 1. No acute fracture or dislocation. Yuan Burton MD Lumbar Spine CT [id number]/09/[id number] Signed Impressions: Service Date/Time: Saturday, September 09, 2017 17:24 - CONCLUSION: Multiple left-sided transverse process fractures and multiple spinous process fractures. Central canal diameter within normal limits at all levels. Primitivo Hayden MD Head CT [id number]/09/171647 Signed Impressions: Service Date/Time: Saturday, September 09, 2017 17:12 - CONCLUSION: 1. No acute intracranial abnormality. Yuan Burton MD Chest CT 09/09/171647 Signed Impressions: Service Date/Time: Saturday, September 09, 2017 17:24 - CONCLUSION: Multiple left rib fractures pneumothorax or large bore left chest tube small pneumothorax persists Mediastinum intact. Minimal contusion left lung. Isrrael Mcconnell MD FACR Cervical Spine CT 09/09/171647 Signed Impressions: Service Date/Time: Saturday, September 09, 2017 17:18 - CONCLUSION: Degenerative changes, negative for fracture. Subcutaneous emphysema arising from the left chest wall. Isrrael Mcconnell MD FACR Abdomen/Pelvis CT 09/09/171647 Signed Impressions: Service Date/Time: Saturday, September 09, 2017 17:24 - CONCLUSION: Negative for solid organ injury in spite of trauma to the left chest Left rib fractures and transverse process fractures as described above Pelvis intact. Isrrael Mcconnell MD FACR Narrative Exam GENERAL: 41 year old well-nourished male lying in bed in no acute distress. SKIN: Warm and dry. HEAD: Atraumatic. Normocephalic. EYES: Pupils equal and round. No scleral icterus. No injection or drainage. ENT: No nasal bleeding or discharge. Mucous membranes pink and moist. NECK: Trachea midline. No JVD. CARDIOVASCULAR: Regular rate and rhythm. RESPIRATORY: No accessory muscle use. Clear and diminished to auscultation. Breath sounds equal bilaterally. LEFT lateral chest tube secured to pleura vac system at -20cm of suction. No air leak noted. Serosanguineous fluid noted in collection chambers. GASTROINTESTINAL: Abdomen soft, non-tender, nondistended. + BS MUSCULOSKELETAL: Extremities without cyanosis, or edema. MAEW, + perfused NEUROLOGICAL: Awake and alert. Normal speech. A/P Assessment and Plan [place]: Fell off a roof approximately 12-18 feet, landing on the top corner of a door. No LOC. INJURIES: LEFT rib fxs (2-9) LEFT BOBO/PTX T12 transverse process fx Multiple lumbar transverse and spinous process fxs PMHx: migraines 09/09: LEFT CT placement Diet: Regular Pulm: IS, acapella, EZ-PAP with nebs Pain: [place] 7.5-10mg q4, Robaxin, Added Motrin x 5 days Ofirmev for breakthrough. DC Toradol Activity: OOB. PT and OTordered GI: PO Pepcid Bowel: Diana-colace, Miralax, PRN Lactulose. No BM yet DVT: SCDs, Lovenox 40 QD LEFT rib fxs, LEFT BOBO/PTX, T12 transverse process fx, Multiple lumbar transverse and spinous process fxs Supportive care 09/09: LEFT CT placement Continue CT on -20cm sxn Daily CT dressing changes CT drained 140mL of serosanguineous fluid drained overnight Pulmonary toileting Pain control OOB- PT ordered CXR today shows left apical PTX Hgb stable Plan of care d/w patient at bedside. D/W RN- encourage pulmonary toileting and try new pain meds to see if nausea improves. Take pain meds with food. CM consulted to assist with DC planning. K[place] following for possible placement at DC Lisa Cline Sep 12, 2017 13:34
[2017-09-12] MEDS: ONDANSETRON ODT 4 MG TAB PO PRN ×2 (13:39→17:37)
[2017-09-12] MEDS: ACETAMINOPHEN/HYDROcodone 325 MG/10 MG TAB PO PRN ×2 (13:45→17:37)
[2017-09-12] MEDS: IBUPROFEN 800 MG TAB PO SCH ×2 (14:00→17:47)
[2017-09-12] MEDS: fentaNYL 50 MCG/HR PATCH T-DERMAL SCH (18:00)
[2017-09-12] MEDS: ENOXAPARIN SODIUM 40 MG/0.4 ML SYRINGE SQ SCH (21:32)
[2017-09-13] VITALS (8 sets, daily range): BP systolic 123–149; BP diastolic 72–84; PULSE 58–82; RESP 17–20; TEMP 96.8–97.9; O2SAT 94–99
[2017-09-13] MEDS: ACETAMINOPHEN/HYDROcodone 325 MG/10 MG TAB PO PRN ×3 (02:30→18:10)
[2017-09-13] MEDS: IBUPROFEN 800 MG TAB PO SCH ×4 (06:08→18:10)
[2017-09-13] MEDS: METHOCARBAMOL 500 MG TAB PO SCH ×3 (06:09→21:19)
--- NOTE | 2017-09-13 06:21 | RADRPT ---
EXAM DATE/TIME: 09/13/2017 05:39 [facility] COMPARISON: CHEST SINGLE AP, September 12, 2017, 5:29. INDICATIONS : Chest pain, short of breath, evalute pneumothorax and chest tube MEDICAL HISTORY : rib fractures, pneumothorax SURGICAL HISTORY : chest tube ENCOUNTER: Subsequent ACUITY: 4 - 6 days PAIN SCORE: 10/10 LOCATION: Bilateral chest FINDINGS: There is a left chest tube in place. There is a persistent mild pneumothorax seen at the left apex me asuring up to 0.9 cm. Multiple left-sided rib fractures are present. There is increased density at th e left base. The right lung is clear. The heart size is normal. CONCLUSION: 1. Persistent mild left pneumothorax with a left-sided chest tube in place. 2. Left lower lobe atelectasis and/or consolidation/contusion Dariusz Leone MD on September 13, 2017 at 6:16 Board Certified Radiologist. This report was verified electronically.
[2017-09-13] MEDS ORDERED: MAGNESIUM CITRATE SOLN 300 ML BTL PO ONE (07:00)
[2017-09-13 07:30] LABS: AUTOMATED NEUTROPHIL # 5.8 TH/MM3 (1.8-7.7); BASOPHIL % 0.3 % (0.0-2.0); EOSINOPHIL # 0.1 TH/MM3 (0-0.4); EOSINOPHIL % 0.7 % (0.0-4.0); HEMATOCRIT 31.8 % (39.0-51.0); HEMOGLOBIN 11.3 GM/DL (13.0-17.0); LYMPH % 21.9 % (9.0-44.0); LYMPHOCYTE # 1.8 TH/MM3 (1.0-4.8); MEAN CELL VOLUME 93.7 FL (80.0-100.0); MEAN CORPUSCULAR HEMOGLOBIN 33.4 PG (27.0-34.0); MEAN CORPUSCULAR HGB CONC 35.6 % (32.0-36.0); MEAN PLATELET VOLUME 8.8 FL (7.0-11.0); MONO % 7.5 % (0.0-8.0); MONOCYTE # 0.6 TH/MM3 (0-0.9); NEUT % 69.6 % (16.0-70.0); PLATELET COUNT 184 TH/MM3 (150-450); RED BLOOD COUNT 3.39 MIL/MM3 (4.50-5.90); RED CELL DISTRIBUTION WIDTH 12.9 % (11.6-17.2); WHITE BLOOD COUNT 8.3 TH/MM3 (4.0-11.0)
[2017-09-13 07:56] LABS: BICARBONATE 28.9 MEQ/L (21.0-32.0); CALCIUM 8.7 MG/DL (8.5-10.1); CREATININE 0.68 MG/DL (0.60-1.30)
[2017-09-13] MEDS: RESP: IPRATROPIUM 0.5 MG/2.5 ML NEB NEB SCH ×4 (08:06→19:55)
[2017-09-13] MEDS: MAGNESIUM HYDROXIDE SUSP 30 ML CUP PO SCH ×3 (09:00→21:19)
[2017-09-13] MEDS ORDERED: MAGN30S PO (09:16)
[2017-09-13] MEDS ORDERED: PERI PO (09:16)
[2017-09-13] MEDS: FAMOTIDINE 20 MG TAB PO SCH ×2 (09:26→21:20)
[2017-09-13] MEDS: DOCUSATE SODIUM 50 MG/SENNA 8.6 MG TAB PO SCH ×2 (09:26→21:20)
[2017-09-13] MEDS: ONDANSETRON ODT 4 MG TAB PO PRN ×2 (09:27→18:10)
[2017-09-13] MEDS: SODIUM CHLORIDE 0.9% FLUSH 10 ML FLUSH IV FLUSH SCH ×2 (09:27→21:20)
[2017-09-13] MEDS ORDERED: PILL SPLITTER OTHER PRN (11:15)
--- NOTE | 2017-09-13 11:58 | HHI.PR ---
Subjective Subjective Notes Reports his pain control is better with the Fentanyl patch was added. No nausea with the [place] Complains of back spasms Objective Vitals/I&O Vital Signs Date Time Temp Pulse Resp B/P (MAP) Pulse Ox O2 Delivery O2 Flow Rate FiO2 09/13/17 11:42 96.9 64 18 149/80 (103) 95 09/13/17 09:35 Room Air 09/13/17 08:08 21 09/11/17 20:52 2.00 Labs Laboratory Tests Test 09/13/17 04:58 White Blood Count 8.3 Red Blood Count 3.39 Hemoglobin 11.3 Hematocrit 31.8 Mean Corpuscular Volume 93.7 Mean Corpuscular Hemoglobin 33.4 Mean Corpuscular Hemoglobin Concent 35.6 Red Cell Distribution Width 12.9 Platelet Count 184 Mean Platelet Volume 8.8 Neutrophils (%) (Auto) 69.6 Lymphocytes (%) (Auto) 21.9 Monocytes (%) (Auto) 7.5 Eosinophils (%) (Auto) 0.7 Basophils (%) (Auto) 0.3 Neutrophils # (Auto) 5.8 Lymphocytes # (Auto) 1.8 Monocytes # (Auto) 0.6 Eosinophils # (Auto) 0.1 Basophils # (Auto) 0.0 CBC Comment DIFF FINAL Differential Comment Blood Urea Nitrogen 9 Creatinine 0.68 Random Glucose 104 Calcium Level 8.7 Sodium Level 137 Potassium Level 4.0 Chloride Level 102 Carbon Dioxide Level 28.9 Anion Gap 6 Estimat Glomerular Filtration Rate 129 Radiology Last Impressions Chest X-Ray 09/12/17 0600 Signed Impressions: Service Date/Time: Tuesday, September 12, 2017 05:29 - CONCLUSION: Stable tiny left apical pneumothorax measuring 6 mm. No new or significant changes. Thomas Cabezas MD Thoracic Spine CT 09/09/171647 Signed Impressions: Service Date/Time: Saturday, September 09, 2017 17:24 - CONCLUSION: Left T12 transverse process fracture and left-sided rib fractures. Small left pneumothorax. Chest tube in place. Primitivo Hayden MD Pelvis X-Ray 09/09/171647 Signed Impressions: Service Date/Time: Saturday, September 09, 2017 16:44 - CONCLUSION: 1. No acute fracture or dislocation. Yuan Burton MD Lumbar Spine CT 09/09/171647 Signed Impressions: Service Date/Time: Saturday, September 09, 2017 17:24 - CONCLUSION: Multiple left-sided transverse process fractures and multiple spinous process fractures. Central canal diameter within normal limits at all levels. Primitivo Hayden MD Head CT 09/09/171647 Signed Impressions: Service Date/Time: Saturday, September 09, 2017 17:12 - CONCLUSION: 1. No acute intracranial abnormality. Yuan Burton MD Chest CT 09/09/171647 Signed Impressions: Service Date/Time: Saturday, September 09, 2017 17:24 - CONCLUSION: Multiple left rib fractures pneumothorax or large bore left chest tube small pneumothorax persists Mediastinum intact. Minimal contusion left lung. Isrrael Mcconnell MD FACR Cervical Spine CT 09/09/171647 Signed Impressions: Service Date/Time: Saturday, September 09, 2017 17:18 - CONCLUSION: Degenerative changes, negative for fracture. Subcutaneous emphysema arising from the left chest wall. Isrrael Mcconnell MD FACR Abdomen/Pelvis CT 09/09/171647 Signed Impressions: Service Date/Time: Saturday, September 09, 2017 17:24 - CONCLUSION: Negative for solid organ injury in spite of trauma to the left chest Left rib fractures and transverse process fractures as described above Pelvis intact. Isrrael Mcconnell MD FACR Narrative Exam GENERAL: 41 year old well-nourished male lying in bed in no acute distress. SKIN: Warm and dry. HEAD: Atraumatic. Normocephalic. EYES: Pupils equal and round. No scleral icterus. No injection or drainage. ENT: No nasal bleeding or discharge. Mucous membranes pink and moist. NECK: Trachea midline. No JVD. CARDIOVASCULAR: Regular rate and rhythm. RESPIRATORY: No accessory muscle use. Clear and diminished to auscultation. Breath sounds equal bilaterally. LEFT lateral chest tube secured to pleura vac system at -20cm of suction. No air leak noted. Serosanguineous fluid noted in collection chambers. GASTROINTESTINAL: Abdomen soft, non-tender, nondistended. + BS MUSCULOSKELETAL: Extremities without cyanosis, or edema. MAEW, + perfused NEUROLOGICAL: Awake and alert. Normal speech. A/P Assessment and Plan [place]: Fell off a roof approximately 12-18 feet, landing on the top corner of a door. No LOC. INJURIES: LEFT rib fxs (2-9) LEFT BOBO/PTX T12 transverse process fx Multiple lumbar transverse and spinous process fxs PMHx: migraines 09/09: LEFT CT placement Diet: Regular Pulm: IS, acapella, EZ-PAP with nebs Pain: [place], Robaxin increased, Added Motrin x 5 days, Ofirmev for breakthrough. Fentanyl patch 50mcg Activity: OOB. PT and OT ordered GI: PO Pepcid Bowel: Diana-colace, MOM, PRN Lactulose. No BM yet- Mag citrate x1. Educated again about refusing bowel regimen DVT: SCDs, Lovenox 40 QD LEFT rib fxs, LEFT BOBO/PTX, T12 transverse process fx, Multiple lumbar transverse and spinous process fxs Supportive care 09/09: LEFT CT placement Place CT on water seal Daily CT dressing changes CT drained 185mL of serosanguineous fluid drained overnight Pulmonary toileting Pain control OOB- PT ordered CXR today shows left apical PTX Hgb stable Plan of care d/w patient at bedside. D/W RN. CM consulted to assist with DC planning. Peng following for possible placement at DC Lisa Cline Sep 13, 2017 11:58
[2017-09-13] MEDS: ENOXAPARIN SODIUM 40 MG/0.4 ML SYRINGE SQ SCH (21:20)
[2017-09-14] VITALS (8 sets, daily range): BP systolic 122–139; BP diastolic 74–87; PULSE 72–88; RESP 16–20; TEMP 97–98.9; O2SAT 96–100
[2017-09-14] MEDS: IBUPROFEN 800 MG TAB PO SCH ×4 (00:14→18:00)
[2017-09-14] MEDS: METHOCARBAMOL 500 MG TAB PO SCH ×3 (06:21→22:50)
--- NOTE | 2017-09-14 06:48 | RADRPT ---
EXAM DATE/TIME: 09/14/2017 05:38 [facility] COMPARISON: CHEST SINGLE AP, September 13, 2017, 5:39. INDICATIONS : Shortness of breath. MEDICAL HISTORY : None. SURGICAL HISTORY : None. ENCOUNTER: Subsequent ACUITY: 1 week PAIN SCORE: Non-responsive. LOCATION: Bilateral chest FINDINGS: There is a left chest tube in place. There continues to be a mild left pneumothorax over the left ape x measuring up to 7 mm in thickness. Multiple left sided rib fractures are seen. There is increased d ensity at the left base with silhouetting left hemidiaphragm. Right lung is clear. CONCLUSION: 1. Left chest tube with a minimal left pneumothorax again seen. 2. Left lower lobe atelectasis or consolidation. Dariusz Leone MD on September 14, 2017 at 6:44 Board Certified Radiologist. This report was verified electronically.
[2017-09-14] MEDS: RESP: IPRATROPIUM 0.5 MG/2.5 ML NEB NEB SCH ×4 (08:16→21:09)
[2017-09-14] MEDS ORDERED: BISACODYL 10 MG SUPP RECTAL ONE (08:30)
[2017-09-14] MEDS ORDERED: BISACODYL EC 5 MG TABEC PO ONE (08:30)
[2017-09-14] MEDS: POLYETHYLENE GLYCOL 17 GM PKG PO SCH (09:00)
[2017-09-14] MEDS: SODIUM CHLORIDE 0.9% FLUSH 10 ML FLUSH IV FLUSH SCH ×2 (09:00→20:02)
[2017-09-14] MEDS: LACTULOSE SYRUP 20 GM/30 ML CUP PO SCH (09:00)
[2017-09-14] MEDS: MAGNESIUM HYDROXIDE SUSP 30 ML CUP PO SCH ×2 (09:00→20:02)
[2017-09-14] MEDS: ACETAMINOPHEN/HYDROcodone 325 MG/10 MG TAB PO PRN ×2 (10:02→19:38)
[2017-09-14] MEDS: DOCUSATE SODIUM 50 MG/SENNA 8.6 MG TAB PO SCH ×2 (10:04→20:02)
[2017-09-14] MEDS: FAMOTIDINE 20 MG TAB PO SCH ×2 (10:04→20:02)
--- NOTE | 2017-09-14 11:42 | HHI.PR ---
Subjective Subjective Notes PTD: 5 Pt is OOB in a recliner chair. Per PT, pt just walked to the end of the hallway and back. Pt states with a smile, "the pain is pretty good, but I'm not gonna ." "That Fentanyl patch is really working." "What can I do to get better?" Objective Vitals/I&O Vital Signs Date Time Temp Pulse Resp B/P (MAP) Pulse Ox O2 Delivery O2 Flow Rate FiO2 09/14/17 08:17 96 09/14/17 08:00 98.6 74 16 133/80 (97) 09/13/17 21:20 Room Air 09/13/17 16:18 21 09/11/17 20:52 2.00 Labs Laboratory Tests Test 09/09/17 16:49 09/09/17 22:40 09/11/17 05:48 09/13/17 04:58 Bedside Hemoglobin 14.6 G/DL Bedside Hematocrit 43.0 % Prothrombin Time 10.6 SEC Prothromb Time International Ratio 1.0 RATIO Activated Partial Thromboplast Time 22.9 SEC Bedside Sodium 142 MMOL/L Bedside Potassium 3.3 MMOL/L Bedside Chloride 103 MMOL/L Bedside Blood Urea Nitrogen 11 MG/DL Bedside Creatinine 1.0 MG/DL Bedside Glucose 133 MG/DL Nasal Screen MRSA (PCR) MRSA NOT DETECTED Hematology Comments White Blood Count 8.3 TH/MM3 Red Blood Count 3.39 MIL/MM3 Hemoglobin 11.3 GM/DL Hematocrit 31.8 % Mean Corpuscular Volume 93.7 FL Mean Corpuscular Hemoglobin 33.4 PG Mean Corpuscular Hemoglobin Concent 35.6 % Red Cell Distribution Width 12.9 % Platelet Count 184 TH/MM3 Mean Platelet Volume 8.8 FL Neutrophils (%) (Auto) 69.6 % Lymphocytes (%) (Auto) 21.9 % Monocytes (%) (Auto) 7.5 % Eosinophils (%) (Auto) 0.7 % Basophils (%) (Auto) 0.3 % Neutrophils # (Auto) 5.8 TH/MM3 Lymphocytes # (Auto) 1.8 TH/MM3 Monocytes # (Auto) 0.6 TH/MM3 Eosinophils # (Auto) 0.1 TH/MM3 Basophils # (Auto) 0.0 TH/MM3 CBC Comment DIFF FINAL Differential Comment Blood Urea Nitrogen 9 MG/DL Creatinine 0.68 MG/DL Random Glucose 104 MG/DL Calcium Level 8.7 MG/DL Sodium Level 137 MEQ/L Potassium Level 4.0 MEQ/L Chloride Level 102 MEQ/L Carbon Dioxide Level 28.9 MEQ/L Anion Gap 6 MEQ/L Estimat Glomerular Filtration Rate 129 ML/MIN Radiology Last 48 hours Impressions Chest X-Ray 09/14/17599 Signed Impressions: Service Date/Time: Thursday, September 14, 2017 05:38 - CONCLUSION: 1. Left chest tube with a minimal left pneumothorax again seen. 2. Left lower lobe atelectasis or consolidation. Dariusz Leone MD Chest X-Ray 09/13/17599 Signed Impressions: Service Date/Time: Wednesday, September 13, 2017 05:39 - CONCLUSION: 1. Persistent mild left pneumothorax with a left-sided chest tube in place. 2. Left lower lobe atelectasis and/or consolidation/contusion Dariusz Leone MD Narrative Exam GENERAL: This is a 41-year-old male OOB in a recliner chair. No distress noted. SKIN: Warm and dry. HEAD: Atraumatic. Normocephalic. EYES: PERRLA ENT: No nasal bleeding or discharge. Mucous membranes pink and moist. NECK: Trachea midline. No JVD. CARDIOVASCULAR: Regular rate and rhythm. RESPIRATORY: No accessory muscle use. Lungs are clear to auscultation. Breath sounds equal bilaterally. No distress or dyspnea. LEFT lateral CT in place to Pleura-evac drainage system to 20 cm suction. Dressing CDI. GASTROINTESTINAL: BS + x 4 quads. Abdomen soft, non-tender, nondistended. MUSCULOSKELETAL: Extremities without cyanosis, or edema. + peripheral pulses x 4 extremities. Warm with good capillary refill and sensation. MAEW. NEUROLOGICAL: Awake and alert. Normal speech and pattern. A/P Problem List: (1) Hemopneumothorax, left ICD Codes: J94.2 - Hemothorax Status: Acute Assessment and Plan MAKAH: This is a 41-year-old male who sustained a fall. He fell off a roof approximately 12-18 feet, landing on the top of the door. No LOC. INJURIES: LEFT rib fxs (2-9) LEFT BOBO/PTX T12 transverse process fx Multiple lumbar transverse and spinous process fxs PMHx: migraines Procedures: 09/09: LEFT CT placement Consults: Case management. Diet: Regular diet. Tolerating po diet. Encourage good po intake with each meal. Pulmonary: Encourage good pulmonary toileting. IS and acapella at bedside and pt encouraged to use. Rationale for use explained to patient, and verbalized understanding. EZ pap with nebs. LEFT lateral CT in place to Pleura-evac drainage system to 20 cm suction. 300 ml/24 hrs. CXR shows persistent apical PTX. LLL atelectasis vs. consolidation. F/U CXR in the AM. PAIN Management: [place] 7.5-10mg q 4h (w/ zofran). Robaxin 750 mg q h. Motrin (sched) x 5 days. Fentanyl patch 50mcg, Ofirmev for breakthrough. Activity: OOB. PT and OT ordered GI prophylaxis: Pepcid 20 mg BID. Bowel regimen: . Diana-colace. MOM BID. Miralax. Lactulose. LBM: 0. Intensified with bisacodyl PO/[place] x 1 dose today. DVT prophylaxis: Mechanical VTE with SCDs. Chemical management with Lovenox 40 QD SQ. DC Planning: Case management consulted for assistance with final discharge disposition. This is a workman's compensation case. Peng in following the patient for possible admission. However at this time, the pt and his would like to go home. Will order DME and request HHC. Emotional support provided to patient and family at bedside and plan of care discussed. Discussed with RN at bedside. Discussed pt condition and plan of care with collaborating trauma surgeon. Patient is hemodynamically stable and being managed on the med/surg floor. The trauma team will round each day, and evaluate plan of care on a daily basis. LEFT rib fxs LEFT BOBO/PTX T12 transverse process fx Multiple lumbar transverse and spinous process fxs O2 as needed Supportive care Aggressive pulmonary toileting. 09/09: LEFT CT placement LEFT lateral CT in place to pleura-evac drainage system to [address] output - 300 ml/[address] dressing changes CXR shows PTX = 0.66. LLL atelectasis vs consolidation F/U CXR in the AM Pain control Encourage OOB- PT ordered Hgb stable Winnie Arzola Sep 14, 2017 11:42
[2017-09-14] MEDS ORDERED: WALKER WHEELS/F1 MIS (14:52)
--- NOTE | 2017-09-14 14:53 | HHI.FF ---
Face to Face Verification Diagnosis: (1) Hemopneumothorax, left Physical Therapy Order: Evaluate and Treat, Improve ambulation, Strength and gait training Home Health Nursing Order: Medical education Signs/symptoms of disease process Medication education-adverse effect Nursing assessment with vital signs I have seen patient Jean Carlos Mckenna on 09/14/17. My clinical findings support the need for the requested home health care services because: Ltd mobility - disease progression Deconditioned w/ increased weakness Limited ability to care for self High risk of falls I certify that my clinical findings support that this patient is homebound because: Post-op weakness Unsteady gait/balance Unsafe to leave home unassisted [id number] bed/chair Unable to use public transportation Winnie Arzola Sep 14, 2017 14:53
[2017-09-14] MEDS: ENOXAPARIN SODIUM 40 MG/0.4 ML SYRINGE SQ SCH (22:50)
[2017-09-15 03:49] VITALS: BP 140/72; PULSE 71; RESP 18; TEMP 97.2; O2SAT 99
[2017-09-15] MEDS: METHOCARBAMOL 500 MG TAB PO SCH ×3 (05:33→21:59)
[2017-09-15] MEDS: IBUPROFEN 800 MG TAB PO SCH ×4 (05:34→18:14)
[2017-09-15] MEDS: ACETAMINOPHEN/HYDROcodone 325 MG/10 MG TAB PO PRN ×3 (05:34→18:14)
--- NOTE | 2017-09-15 07:46 | RADRPT ---
EXAM DATE/TIME: 09/15/2017 06:32 [facility] COMPARISON: CHEST SINGLE AP, September 14, 2017, 5:38. INDICATIONS : Short of breath, left side chest and rib pain, evaluate left chest tube MEDICAL HISTORY : rib fractures, pneumothorax SURGICAL HISTORY : chest tube ENCOUNTER: Subsequent ACUITY: 1 week PAIN SCORE: 10/10 LOCATION: Left chest FINDINGS: Cardiomegaly. Linear atelectasis at the right lung base. There is a small left apical pneumothorax id entified a chest tube in place. Multiple left-sided rib fractures are again seen. There is consolidat ion at the left lower lobe. CONCLUSION: Stable appearance of the chest. Left-sided pneumothorax again noted. Neto Weeks MD on September 15, 2017 at 7:44 Board Certified Radiologist. This report was verified electronically.
[2017-09-15] MEDS: RESP: IPRATROPIUM 0.5 MG/2.5 ML NEB NEB SCH ×4 (07:57→22:29)
[2017-09-15 07:58] VITALS: O2SAT 99
[2017-09-15 08:00] VITALS: BP 138/78; PULSE 73; RESP 17; TEMP 97.5; O2SAT 99
[2017-09-15] MEDS: DOCUSATE SODIUM 50 MG/SENNA 8.6 MG TAB PO SCH ×2 (08:18→21:59)
[2017-09-15] MEDS: SUMAtriptan SUCCINATE 25 MG TAB PO PRN (08:18)
[2017-09-15] MEDS: FAMOTIDINE 20 MG TAB PO SCH ×2 (08:19→21:59)
[2017-09-15] MEDS: MAGNESIUM HYDROXIDE SUSP 30 ML CUP PO SCH ×2 (08:29→21:57)
[2017-09-15] MEDS: LACTULOSE SYRUP 20 GM/30 ML CUP PO SCH (08:29)
[2017-09-15] MEDS: POLYETHYLENE GLYCOL 17 GM PKG PO SCH (08:29)
[2017-09-15] MEDS: SODIUM CHLORIDE 0.9% FLUSH 10 ML FLUSH IV FLUSH SCH ×2 (08:30→22:00)
[2017-09-15] MEDS: ONDANSETRON ODT 4 MG TAB PO PRN ×2 (10:18→18:14)
--- NOTE | 2017-09-15 11:38 | HHI.PR ---
Subjective Subjective Notes PTD: 6 Pt lying in bed. No distress noted. Pt states that his pain is OK, "but the CT is really bothering me today." "What can I do?" Pt is trying to pin down trauma team for a date when he can go home. "I miss my daughter." Objective Vitals/I&O Vital Signs Date Time Temp Pulse Resp B/P (MAP) Pulse Ox O2 Delivery O2 Flow Rate FiO2 09/15/17 08:00 97.5 73 17 138/78 (98) 99 09/14/17 21:11 21 09/13/17 21:20 Room Air 09/11/17 20:52 2.00 Radiology Last 24 hours Impressions Chest X-Ray 09/15/17 0600 Signed Impressions: Service Date/Time: August 06:32 - CONCLUSION: Stable appearance of the chest. Left-sided pneumothorax again noted. Neto Weeks MD Narrative Exam GENERAL: This is a 41-year-old male lying in bed. No distress noted. SKIN: Warm and dry. HEAD: Atraumatic. Normocephalic. EYES: PERRLA ENT: No nasal bleeding or discharge. Mucous membranes pink and moist. NECK: Trachea midline. No JVD. CARDIOVASCULAR: Regular rate and rhythm. RESPIRATORY: No accessory muscle use. Lungs are clear to auscultation. Breath sounds equal bilaterally. No distress or dyspnea. LEFT lateral CT in place to Pleura-evac drainage system to 20 cm suction. No air leak noted. Dressing CDI. IS = 1000 GASTROINTESTINAL: BS + x 4 quads. Abdomen soft, non-tender, nondistended. MUSCULOSKELETAL: Extremities without cyanosis, or edema. + peripheral pulses x 4 extremities. Warm with good capillary refill and sensation. MAEW. NEUROLOGICAL: Awake and alert. Normal speech and pattern. A/P Problem List: (1) Hemopneumothorax, left ICD Codes: J94.2 - Hemothorax Status: Acute Assessment and Plan [place]: This is a 41-year-old male who sustained a fall. He fell off a roof approximately 12-18 feet, landing on the top of the door. No LOC. INJURIES: LEFT rib fxs (2-9) LEFT BOBO/PTX T12 transverse process fx Multiple lumbar transverse and spinous process fxs PMHx: migraines Procedures: 09/09: LEFT CT placement Consults: Case management. Diet: Regular diet. Tolerating po diet. Encourage good po intake with each meal. Pulmonary: Encourage good pulmonary toileting. IS and acapella at bedside and pt encouraged to use. Rationale for use explained to patient, and verbalized understanding. EZ pap with nebs. LEFT lateral CT in place to Pleura-evac drainage system to 20 cm suction. 230 ml/24 hrs. CXR shows persistent apical PTX. LLL atelectasis vs. consolidation. F/U CXR in the AM. PAIN Management: [place] 7.5-10mg q 4h (w/ zofran). Robaxin 750 mg q h. Motrin (sched) x 5 days. Fentanyl patch 50mcg, Ofirmev for breakthrough. Activity: OOB. PT and OT ordered GI prophylaxis: Pepcid 20 mg BID. Bowel regimen: . Diana-colace. MOM BID. Miralax. Lactulose. LBM: 09/15 DVT prophylaxis: Mechanical VTE with SCDs. Chemical management with Lovenox 40 QD SQ. DC Planning: Case management consulted for assistance with final discharge disposition. This is a workman's compensation case. Peng in following the patient for possible admission. However at this time, the pt and his would like to go home. DME ordered and HHC requested. Emotional support provided to patient at bedside and plan of care discussed. Discussed with RN at bedside. Discussed pt condition and plan of care with collaborating trauma surgeon. Patient is hemodynamically stable and being managed on the med/surg floor. The trauma team will round each day, and evaluate plan of care on a daily basis. LEFT rib fxs LEFT BOBO/PTX T12 transverse process fx Multiple lumbar transverse and spinous process fxs O2 as needed Supportive care Aggressive pulmonary toileting. 09/09: LEFT CT placement LEFT lateral CT in place to pleura-evac drainage system to [address] output - 230 ml/[address] dressing changes CXR shows persistant PTX LLL atelectasis vs consolidation F/U CXR in the AM Pain control Encourage OOB- PT ordered Hgb stable Remarks Patient seen and examined with the nurse practitioner, his chest x-ray shows a small pneumothorax, keep patient on suction, pneumothorax stable or decreasing in size may attempt waterseal Winnie Arzola Sep 15, 2017 11:38 Orin Sorto MD Sep 15, 2017 15:18
[2017-09-15 16:05] VITALS: BP 124/78; PULSE 71; RESP 18; TEMP 97.7; O2SAT 97
[2017-09-15] MEDS: REMOVE OLD PATCH T-DERMAL SCH (18:00)
[2017-09-15] MEDS: fentaNYL 50 MCG/HR PATCH T-DERMAL SCH (18:14)
[2017-09-15 20:02] VITALS: BP 126/74; PULSE 93; RESP 18; TEMP 99.4; O2SAT 98
[2017-09-15] MEDS: ENOXAPARIN SODIUM 40 MG/0.4 ML SYRINGE SQ SCH (22:00)
[2017-09-16] VITALS (7 sets, daily range): BP systolic 123–141; BP diastolic 71–79; PULSE 61–86; RESP 17–18; TEMP 96.7–98.6; O2SAT 94–99
[2017-09-16] MEDS: IBUPROFEN 800 MG TAB PO SCH ×4 (00:32→16:57)
--- NOTE | 2017-09-16 05:49 | RADRPT ---
EXAM DATE/TIME: 09/16/2017 05:01 [facility] COMPARISON: CHEST SINGLE AP, September 15, 2017, 6:32. INDICATIONS : Follow up post multiple left-sided rib fractures,and hemopneumothorax MEDICAL HISTORY : rib fractures, pneumothorax SURGICAL HISTORY : chest tube ENCOUNTER: Subsequent ACUITY: 1 week PAIN SCORE: 6/10 LOCATION: Left chest FINDINGS: Stable left apical chest tube. Previously noted trace left apical pneumothorax is minimally improved. Mild airspace disease at the left lung base. Cardiomediastinal contours are stable. Redemonstration of multiple displaced left-sided rib fractures. CONCLUSION: 1. Stable left apical chest tube with minimally improved left apical pneumothorax. 2. Stable mild airspace disease at the left lung base. 3. Redemonstration of multiple displaced left-sided rib fractures. Yuan Burton MD on September 16, 2017 at 5:46 Board Certified Radiologist. This report was verified electronically.
[2017-09-16] MEDS: METHOCARBAMOL 500 MG TAB PO SCH ×3 (06:31→21:13)
[2017-09-16] MEDS: RESP: IPRATROPIUM 0.5 MG/2.5 ML NEB NEB SCH ×5 (08:00→20:24)
[2017-09-16] MEDS: FAMOTIDINE 20 MG TAB PO SCH ×2 (08:56→21:13)
[2017-09-16] MEDS: ONDANSETRON ODT 4 MG TAB PO PRN ×4 (08:56→21:14)
[2017-09-16] MEDS: ACETAMINOPHEN/HYDROcodone 325 MG/10 MG TAB PO PRN ×2 (08:56→12:51)
[2017-09-16] MEDS: MAGNESIUM HYDROXIDE SUSP 30 ML CUP PO SCH ×2 (08:57→21:13)
[2017-09-16] MEDS: DOCUSATE SODIUM 50 MG/SENNA 8.6 MG TAB PO SCH ×2 (08:57→21:13)
[2017-09-16] MEDS: SODIUM CHLORIDE 0.9% FLUSH 10 ML FLUSH IV FLUSH SCH ×2 (08:57→21:14)
[2017-09-16] MEDS: LACTULOSE SYRUP 20 GM/30 ML CUP PO SCH (08:57)
[2017-09-16] MEDS: POLYETHYLENE GLYCOL 17 GM PKG PO SCH (08:57)
--- NOTE | 2017-09-16 12:39 | HHI.PR ---
Subjective Subjective Notes PTD: 7 Pt lying in bed. No distress noted. "I'm just trying to get some z's" Pt c/o pain to his right knee. "I think I got my MCL on this fall, but it's minor pain compared to everything else" "It hurts a little when I walk." Objective Vitals/I&O Vital Signs Date Time Temp Pulse Resp B/P (MAP) Pulse Ox O2 Delivery O2 Flow Rate FiO2 09/16/17 12:00 96.7 66 18 140/79 (99) 98 09/15/17 21:45 Room Air 2.[address] chest pending Chest X-Ray 09/16/17 0600 Signed Impressions: Service Date/Time: Saturday, September 16, 2017 05:01 - CONCLUSION: 1. Stable left apical chest tube with minimally improved left apical pneumothorax. 2. Stable mild airspace disease at the left lung base. 3. Redemonstration of multiple displaced left-sided rib fractures. Yuan Burton MD Narrative Exam GENERAL: This is a 41-year-old male lying in bed. No distress noted. SKIN: Warm and dry. HEAD: Atraumatic. Normocephalic. EYES: PERRLA ENT: No nasal bleeding or discharge. Mucous membranes pink and moist. NECK: Trachea midline. No JVD. CARDIOVASCULAR: Regular rate and rhythm. RESPIRATORY: No accessory muscle use. Lungs are clear to auscultation. Breath sounds equal bilaterally. No distress or dyspnea. LEFT lateral CT in place to Pleura-evac drainage system to 20 cm suction. No air leak noted. Dressing CDI. GASTROINTESTINAL: BS + x 4 quads. Abdomen soft, non-tender, nondistended. MUSCULOSKELETAL: Extremities without cyanosis, or edema. RIGHT knee pain. No swelling. Able to actively bend right knee. Pain on palpation of right knee. + peripheral pulses x 4 extremities. Warm with good capillary refill and sensation. MAEW. NEUROLOGICAL: Awake and alert. Normal speech and pattern. A/P Problem List: (1) Hemopneumothorax, left ICD Codes: J94.2 - Hemothorax Status: Acute Assessment and Plan [place]: This is a 41-year-old male who sustained a fall. He fell off a roof approximately 12-18 feet, landing on the top of the door. No LOC. INJURIES: LEFT rib fxs (2-9) LEFT BOBO/PTX T12 transverse process fx Multiple lumbar transverse and spinous process fxs PMHx: migraines Procedures: 09/09: LEFT CT placement Consults: Case management. Diet: Regular diet. Tolerating po diet. Encourage good po intake with each meal. Pulmonary: Encourage good pulmonary toileting. IS and acapella at bedside and pt encouraged to use. Rationale for use explained to patient, and verbalized understanding. EZ pap with nebs. LEFT lateral CT in place to Pleura-evac drainage system to 20 cm suction. No air leak noted. CT output 290 ml/24 hrs - sanguinous. Obtain CT chest today to evaluate PTX and lung due to continued increased CT output. CXR shows minimally improved LEFT apical PTX. LLL atelectasis vs. consolidation. F/U CXR in the AM. PAIN Management: [place] 7.5-10mg q 4h (w/ zofran). Robaxin 750 mg q h. Motrin (DC on 09/17). Fentanyl patch 50mcg, Ofirmev for breakthrough. New complaint of right knee pain. No swelling. Active movement. Slight discomfort with palpation. Pt is able to walk and bear weight. Will monitor closely for now. If no improvement, may need to have an MRI for further evaluation. Activity: OOB. PT and OT ordered. GI prophylaxis: Pepcid 20 mg BID. Bowel regimen: . Diana-colace. MOM BID. Miralax. Lactulose. LBM: 09/16. DVT prophylaxis: Mechanical VTE with SCDs. Chemical management with Lovenox 40 QD SQ. DC Planning: Case management consulted for assistance with final discharge disposition. This is a workman's compensation case. [facility] is following the patient for possible admission. However at this time, the pt and his would like to go home. DME ordered and HHC requested. Once CT output decreases, CT can be removed. Plan for discharge early next week, possibly Tuesday or Tuesday. Emotional support provided to patient at bedside and plan of care discussed. Discussed with RN at bedside. Discussed pt condition and plan of care with collaborating trauma surgeon. Patient is hemodynamically stable and being managed on the med/surg floor. The trauma team will round each day, and evaluate plan of care on a daily basis. LEFT rib fxs LEFT BOBO/PTX T12 transverse process fx Multiple lumbar transverse and spinous process fxs O2 as needed Supportive care Aggressive pulmonary toileting. 09/09: LEFT CT placement LEFT lateral CT in place to pleura-evac drainage system to [address] output - 290 ml/[address] dressing changes CXR shows persistant PTX LLL atelectasis vs consolidation 09/16: CT Chest - awaiting results F/U CXR in the AM Pain control Encourage OOB- PT ordered Hgb stable Remarks Patient seen and examined with the nurse practitioner, chest tube output is still about 200 cc in 24 hours, obtain a CT scan of the chest to follow up his pneumothorax on chest x-ray and exclude any fluid collections as well Winnie Arzola Sep 16, 2017 12:39 Orin Sorto MD Sep 16, 2017 15:58
--- NOTE | 2017-09-16 14:39 | RADRPT ---
EXAM DATE/TIME: 09/16/2017 13:17 [facility] COMPARISON: CT THORAX W CONTRAST, September 09, 2017, 17:24. CHEST SINGLE AP, September 16, 2017, 5:01. INDICATIONS : Hemopneumothorax with rib fractures. RADIATION DOSE: 12.16 CTDIvol (mGy) MEDICAL HISTORY : None SURGICAL HISTORY : Appendectomy. ENCOUNTER: Subsequent ACUITY: 1 week PAIN SCALE: 8/10 LOCATION: Bilateral chest TECHNIQUE: Volumetric scanning of the chest was performed. Using automated exposure control and adjustment of t he mA and/or kV according to patient size, radiation dose was kept as low as reasonably achievable to obtain optimal diagnostic quality images. DICOM format image data is available electronically for r eview and comparison. Follow-up recommendations for detected pulmonary nodules are based at a minimum on nodule size and pa tient risk factors according to Fleischner Society Guidelines. FINDINGS: Multiple left rib fractures again appreciated which are displaced. There is a left chest tube in plac e which terminates posteriorly in the upper lobe with the apex with no evidence of pneumothorax. Ther e is some fluid in the fissure and minimal effusion with patchy areas of consolidation in the left axel ng posteriorly. Some minimal residual supra-clavicular left subcutaneous emphysema is noted. Right axel ng is clear. CONCLUSION: Left rib fractures are apparent. Chest tube in place with some minimal pleural thickening and parench ymal opacification but no evidence of pneumothorax. Dc Lyles MD on September 16, 2017 at 14:34 Board Certified Radiologist. This report was verified electronically.
[2017-09-16] MEDS: SUMAtriptan SUCCINATE 25 MG TAB PO PRN ×2 (15:30→21:14)
[2017-09-16] MEDS: ENOXAPARIN SODIUM 40 MG/0.4 ML SYRINGE SQ SCH (22:26)
[2017-09-17] VITALS (7 sets, daily range): BP systolic 123–143; BP diastolic 73–84; PULSE 65–88; RESP 16–18; TEMP 96.5–98.4; O2SAT 98–100
[2017-09-17] MEDS: IBUPROFEN 800 MG TAB PO SCH ×4 (00:52→18:41)
[2017-09-17] MEDS: SUMAtriptan SUCCINATE 25 MG TAB PO PRN ×2 (00:57→11:09)
[2017-09-17 04:10] LABS: AUTOMATED NEUTROPHIL # 5.6 TH/MM3 (1.8-7.7); BASOPHIL % 0.3 % (0.0-2.0); EOSINOPHIL # 0.3 TH/MM3 (0-0.4); EOSINOPHIL % 3.2 % (0.0-4.0); HEMATOCRIT 32.9 % (39.0-51.0); HEMOGLOBIN 11.5 GM/DL (13.0-17.0); LYMPH % 23.6 % (9.0-44.0); LYMPHOCYTE # 2.1 TH/MM3 (1.0-4.8); MEAN CORPUSCULAR HEMOGLOBIN 32.3 PG (27.0-34.0); MEAN CORPUSCULAR HGB CONC 35.1 % (32.0-36.0); MEAN PLATELET VOLUME 7.6 FL (7.0-11.0); MONO % 8.8 % (0.0-8.0); MONOCYTE # 0.8 TH/MM3 (0-0.9); NEUT % 64.1 % (16.0-70.0); PLATELET COUNT 319 TH/MM3 (150-450); RED BLOOD COUNT 3.57 MIL/MM3 (4.50-5.90); RED CELL DISTRIBUTION WIDTH 12.8 % (11.6-17.2); WHITE BLOOD COUNT 8.7 TH/MM3 (4.0-11.0)
[2017-09-17 04:32] LABS: ALBUMIN 2.9 GM/DL (3.4-5.0); ALT (GPT) 69 U/L (12-78); AST (GOT) 58 U/L (15-37); BICARBONATE 31.1 MEQ/L (21.0-32.0); BLOOD UREA NITROGEN 10 MG/DL (7-18); CALCIUM 8.8 MG/DL (8.5-10.1); CHLORIDE 102 MEQ/L (98-107); CREATININE 0.59 MG/DL (0.60-1.30); GLOMERULAR FILTRATION RATE 151 ML/MIN (>89); GLUCOSE,RANDOM 97 MG/DL (74-106); SODIUM (NA) 140 MEQ/L (136-145)
[2017-09-17 04:34] LABS: ALKALINE PHOSPHATASE 53 U/L (45-117); TOTAL BILIRUBIN ADULT 0.6 MG/DL (0.2-1.0); TOTAL PROTEIN 6.6 GM/DL (6.4-8.2)
--- NOTE | 2017-09-17 05:40 | RADRPT ---
EXAM DATE/TIME: 09/17/2017 04:57 [facility] COMPARISON: CHEST SINGLE AP, September 16, 2017, 5:01. INDICATIONS : Follow up post multiple left-sided rib fractures,and hemopneumothorax MEDICAL HISTORY : rib fractures, pneumothorax SURGICAL HISTORY : chest tube ENCOUNTER: Subsequent ACUITY: 1 week PAIN SCORE: 6/10 LOCATION: Left chest FINDINGS: Stable left apical chest tube with stable trace left apical pneumothorax. Slightly improved aeration in the left lower lobe. Cardiomediastinal contours are stable. Redemonstration of multiple displaced left-sided fractures. CONCLUSION: 1. Stable left apical chest tube with stable trace left apical pneumothorax. 2. Improved aeration in the left lower lobe. Yuan Burton MD on September 17, 2017 at 5:37 Board Certified Radiologist. This report was verified electronically.
[2017-09-17] MEDS: METHOCARBAMOL 500 MG TAB PO SCH ×3 (05:53→22:23)
[2017-09-17] MEDS: RESP: IPRATROPIUM 0.5 MG/2.5 ML NEB NEB SCH ×4 (08:23→20:00)
[2017-09-17] MEDS: LACTULOSE SYRUP 20 GM/30 ML CUP PO SCH (09:00)
[2017-09-17] MEDS: SODIUM CHLORIDE 0.9% FLUSH 10 ML FLUSH IV FLUSH SCH ×2 (09:00→19:41)
[2017-09-17] MEDS: POLYETHYLENE GLYCOL 17 GM PKG PO SCH (09:00)
[2017-09-17] MEDS: DOCUSATE SODIUM 50 MG/SENNA 8.6 MG TAB PO SCH ×2 (09:00→19:41)
[2017-09-17] MEDS: MAGNESIUM HYDROXIDE SUSP 30 ML CUP PO SCH ×2 (09:00→19:40)
--- NOTE | 2017-09-17 09:15 | HHI.PR ---
Subjective Subjective Notes PTD: 8 Pt lying in bed. No distress noted. "I'm doing better, I think." "I hate the narcotics." "All narcotics trigger a migraine and nausea with me. I'd rather just deal with the rib pain than the migraine and nausea." Objective Vitals/I&O Vital Signs Date Time Temp Pulse Resp B/P (MAP) Pulse Ox O2 Delivery O2 Flow Rate FiO2 09/17/17 08:00 98.4 72 17 130/73 (92) 99 09/16/17 21:13 Room Air 09/16/17 15:31 21 09/15/17 21:45 2.00 Labs Laboratory Tests Test 09/17/17 03:48 White Blood Count 8.7 Red Blood Count 3.57 Hemoglobin 11.5 Hematocrit 32.9 Mean Corpuscular Volume 92.0 Mean Corpuscular Hemoglobin 32.3 Mean Corpuscular Hemoglobin Concent 35.1 Red Cell Distribution Width 12.8 Platelet Count 319 Mean Platelet Volume 7.6 Neutrophils (%) (Auto) 64.1 Lymphocytes (%) (Auto) 23.6 Monocytes (%) (Auto) 8.8 Eosinophils (%) (Auto) 3.2 Basophils (%) (Auto) 0.3 Neutrophils # (Auto) 5.6 Lymphocytes # (Auto) 2.1 Monocytes # (Auto) 0.8 Eosinophils # (Auto) 0.3 Basophils # (Auto) 0.0 CBC Comment DIFF FINAL Differential Comment Blood Urea Nitrogen 10 Creatinine 0.59 Random Glucose 97 Total Protein 6.6 Albumin 2.9 Calcium Level 8.8 Alkaline Phosphatase 53 Aspartate Amino Transf (AST/SGOT) 58 Alanine Aminotransferase (ALT/SGPT) 69 Total Bilirubin 0.6 Sodium Level 140 Potassium Level 4.1 Chloride Level 102 Carbon Dioxide Level 31.1 Anion Gap 7 Estimat Glomerular Filtration Rate 151 Radiology Last 48 hours Impressions Chest X-Ray 09/17/17 0600 Signed Impressions: Service Date/Time: Sunday, September 17, 2017 04:57 - CONCLUSION: 1. Stable left apical chest tube with stable trace left apical pneumothorax. 2. Improved aeration in the left lower lobe. Yuan Bozorgmanesh, MD Chest X-Ray 09/16/17 0600 Signed Impressions: Service Date/Time: Saturday, September 16, 2017 05:01 - CONCLUSION: 1. Stable left apical chest tube with minimally improved left apical pneumothorax. 2. Stable mild airspace disease at the left lung base. 3. Redemonstration of multiple displaced left-sided rib fractures. Yuan Burton MD Chest CT 09/16/17 0000 Signed Impressions: Service Date/Time: Saturday, September 16, 2017 13:17 - CONCLUSION: Left rib fractures are apparent. Chest tube in place with some minimal pleural thickening and parenchymal opacification but no evidence of pneumothorax. Dc Lyles MD Narrative Exam GENERAL: This is a 41-year-old male lying in bed. No distress noted. SKIN: Warm and dry. HEAD: Atraumatic. Normocephalic. EYES: PERRLA ENT: No nasal bleeding or discharge. Mucous membranes pink and moist. NECK: Trachea midline. No JVD. CARDIOVASCULAR: Regular rate and rhythm. RESPIRATORY: No accessory muscle use. Lungs are clear to auscultation. Breath sounds equal bilaterally. No distress or dyspnea. LEFT lateral CT in place to Pleura-evac drainage system to 20 cm suction decreased to water seal on rounds. No air leak noted. Dressing CDI. GASTROINTESTINAL: BS + x 4 quads. Abdomen soft, non-tender, nondistended. MUSCULOSKELETAL: Extremities without cyanosis, or edema. + peripheral pulses x 4 extremities. Warm with good capillary refill and sensation. MAEW. NEUROLOGICAL: Awake and alert. Normal speech and pattern. A/P Problem List: (1) Hemopneumothorax, left ICD Codes: J94.2 - Hemothorax Status: Acute Assessment and Plan [place]: This is a 41-year-old male who sustained a fall. He fell off a roof approximately 12-18 feet, landing on the top of the door. No LOC. INJURIES: LEFT rib fxs (2-9) LEFT BOBO/PTX T12 transverse process fx Multiple lumbar transverse and spinous process fxs PMHx: migraines Procedures: 09/09: LEFT CT placement Consults: Case management. Diet: Regular diet. Tolerating po diet. Encourage good po intake with each meal. Pulmonary: Encourage good pulmonary toileting. IS and acapella at bedside and pt encouraged to use. Rationale for use explained to patient, and verbalized understanding. EZ pap with nebs. LEFT lateral CT in place to Pleura-evac drainage system decreased to water seal upon rounds No air leak noted. CT output 119 ml/24 hrs - sanguinous. Plan for CT removal tomorrow if CXR stable. 09/16: CT chest - CT with minimal pleural thickening and parenchymal opacification. NO PTX. CXR today shows stable trace LEFT apical PTX. F/U CXR in the AM. PAIN Management: Pt states that all narcotic trigger a migraine and nausea. DC Mary [place]. Change to Tramadol 50 mg q 8h. Robaxin 750 mg q 8 h. Motrin 800 mg q 6h. DC Fentanyl patch. Ofirmev for breakthrough. Activity: OOB. PT and OT ordered. GI prophylaxis: Pepcid 20 mg BID. Bowel regimen: . Diana-colace. MOM BID. Miralax. Lactulose. LBM: 09/16. DVT prophylaxis: Mechanical VTE with SCDs. Chemical management with Lovenox 40 QD SQ. DC Planning: Case management consulted for assistance with final discharge disposition. This is a workman's compensation case. Peng is following the patient for possible admission. However at this time, the pt and his would like to go home. DME ordered and HHC requested. Once CT output decreases and CT removed, pt can progress to DC home. Plan for discharge early next week, possibly Tuesday or Tuesday. Emotional support provided to patient at bedside and plan of care discussed. Discussed with RN at bedside. Discussed pt condition and plan of care with collaborating trauma surgeon. Patient is hemodynamically stable and being managed on the med/surg floor. The trauma team will round each day, and evaluate plan of care on a daily basis. LEFT rib fxs LEFT BOBO/PTX T12 transverse process fx Multiple lumbar transverse and spinous process fxs O2 as needed Supportive care Aggressive pulmonary toileting. 09/09: LEFT CT placement LEFT lateral CT in place to pleura-evac drainage system to water seal CT output - 119 ml/[address] dressing changes CXR shows trace LEFT apical PTX 09/16: CT Chest - CT with minimal pleural thickening and parenchymal opacification. NO PTX. F/U CXR in the AM Pain control Encourage OOB- PT ordered Hgb stable Remarks Patient seen and examined with the nurse practitioner, patient states that narcotics are triggering his migraine, we will attempt to switch the patient to tramadol, I reviewed the CT scan of the chest there is no pneumothorax or hemothorax-his chest tube output has been 119 cc for 24 hours, tube will be placed on waterseal today, anticipate removal of chest with 24-hour Winnie Arzola Sep 17, 2017 09:15 Orin Sorto MD Sep 17, 2017 14:20
[2017-09-17] MEDS: FAMOTIDINE 20 MG TAB PO SCH ×2 (10:57→19:40)
[2017-09-17] MEDS: ONDANSETRON ODT 4 MG TAB PO PRN (10:57)
[2017-09-17] MEDS: traMADol HCL 50 MG TAB PO PRN ×2 (13:54→22:28)
[2017-09-17] MEDS ORDERED: SUMAtriptan SUCCINATE 25 MG TAB PO PRN (14:00)
[2017-09-17] MEDS: ENOXAPARIN SODIUM 40 MG/0.4 ML SYRINGE SQ SCH (22:23)
[2017-09-18] VITALS (8 sets, daily range): BP systolic 119–132; BP diastolic 69–81; PULSE 65–77; RESP 16–18; TEMP 95.8–98.6; O2SAT 97–99
[2017-09-18] MEDS: METHOCARBAMOL 500 MG TAB PO SCH ×3 (05:38→22:12)
[2017-09-18] MEDS: IBUPROFEN 800 MG TAB PO SCH ×4 (05:38→18:16)
--- NOTE | 2017-09-18 05:53 | RADRPT ---
EXAM DATE/TIME: 09/18/2017 05:00 [facility] COMPARISON: CHEST SINGLE AP, September 17, 2017, 4:57. INDICATIONS : Evaluate for pneumothorax- Left side chest tube MEDICAL HISTORY : None. SURGICAL HISTORY : None. ENCOUNTER: Subsequent ACUITY: 1 week PAIN SCORE: 8/10 LOCATION: Bilateral chest FINDINGS: Stable left apical chest tube with trace left apical pneumothorax. Mild left lung base airspace disea se. Cardiomediastinal contours are within normal limits. Redemonstration of multiple left-sided rib f ractures. CONCLUSION: 1. Stable left apical chest tube with trace left apical pneumothorax. 2. Stable mild left lower lobe airspace disease, likely atelectasis. Yuan Burton MD on September 18, 2017 at 5:50 Board Certified Radiologist. This report was verified electronically.
[2017-09-18] MEDS: traMADol HCL 50 MG TAB PO PRN ×2 (06:35→20:40)
[2017-09-18] MEDS: FAMOTIDINE 20 MG TAB PO SCH ×2 (08:16→20:39)
[2017-09-18] MEDS: LACTULOSE SYRUP 20 GM/30 ML CUP PO SCH (08:17)
[2017-09-18] MEDS: MAGNESIUM HYDROXIDE SUSP 30 ML CUP PO SCH ×2 (08:17→20:40)
[2017-09-18] MEDS: DOCUSATE SODIUM 50 MG/SENNA 8.6 MG TAB PO SCH ×2 (08:18→20:40)
[2017-09-18] MEDS: SODIUM CHLORIDE 0.9% FLUSH 10 ML FLUSH IV FLUSH SCH ×2 (08:18→21:00)
[2017-09-18] MEDS: POLYETHYLENE GLYCOL 17 GM PKG PO SCH (08:18)
--- NOTE | 2017-09-18 11:57 | HHI.PR ---
Subjective Subjective Notes PTD: 9 Patient lying in bed. No distress noted. "I'm good." Patient is looking forward to going home. 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 Patient is made aware that he should not fly for at least 3-6 months.. Objective Vitals/I&O Vital Signs Date Time Temp Pulse Resp B/P (MAP) Pulse Ox O2 Delivery O2 Flow Rate FiO2 09/18/17 08:18 17 09/18/17 08:00 97.8 65 120/73 (89) 98 09/18/17 04:55 21 09/17/17 08:00 Room Air 09/15/17 21:45 2.00 Radiology Last 24 hours Impressions Chest X-Ray 09/18/17 0600 Signed Impressions: Service Date/Time: Monday, September 18, 2017 05:00 - CONCLUSION: 1. Stable left apical chest tube with trace left apical pneumothorax. 2. Stable mild left lower lobe airspace disease, likely atelectasis. Yuan Burton MD Narrative Exam GENERAL: This is a 41-year-old male lying in bed. No distress noted. SKIN: Warm and dry. HEAD: Atraumatic. Normocephalic. EYES: PERRLA ENT: No nasal bleeding or discharge. Mucous membranes pink and moist. NECK: Trachea midline. No JVD. CARDIOVASCULAR: Regular rate and rhythm. RESPIRATORY: No accessory muscle use. Lungs are clear to auscultation. Breath sounds equal bilaterally. No distress or dyspnea. LEFT lateral CT in place to Pleura-evac drainage system to water seal. Removed today at bedside. No air leak noted. Dressing CDI. GASTROINTESTINAL: BS + x 4 quads. Abdomen soft, non-tender, nondistended. MUSCULOSKELETAL: Extremities without cyanosis, or edema. + peripheral pulses x 4 extremities. Warm with good capillary refill and sensation. MAEW. NEUROLOGICAL: Awake and alert. Normal speech and pattern. A/P Problem List: (1) Hemopneumothorax, left ICD Codes: J94.2 - Hemothorax Status: Acute Assessment and Plan [place]: This is a 41-year-old male who sustained a fall. He fell off a roof approximately 12-18 feet, landing on the top of the door. No LOC. INJURIES: LEFT rib fxs (2-9) LEFT BOBO/PTX T12 transverse process fx Multiple lumbar transverse and spinous process fxs PMHx: migraines Procedures: 09/09: LEFT CT placement 09/18: L CT removed at bedside Consults: Case management. Diet: Regular diet. Tolerating po diet. Encourage good po intake with each meal. Pulmonary: Encourage good pulmonary toileting. IS and acapella at bedside and pt encouraged to use. Rationale for use explained to patient, and verbalized understanding. EZ pap with nebs. LEFT lateral CT in place to Pleura-evac drainage system decreased to water seal upon rounds No air leak noted. CT output 60 ml/24 hrs - serous. CXR today shows stable trace LEFT apical PTX. LEFT lateral CT removed without incident. Vaseline gauze and 4x4 dressing applied and secured with Elastoplast dressing. Pt tolerated procedure well. F/U CXR in the AM. PAIN Management: Tramadol 50 mg q 8h. Robaxin 750 mg q 8 h. Motrin 800 mg q 6h. Ofirmev for breakthrough. Activity: OOB. PT and OT ordered. GI prophylaxis: Pepcid 20 mg BID. Bowel regimen: . Diana-colace. MOM BID. Miralax. Lactulose. LBM: 09/16. DVT prophylaxis: Mechanical VTE with SCDs. Chemical management with Lovenox 40 QD SQ. DC Planning: Case management consulted for assistance with final discharge disposition. This is a workman's compensation case. Peng is following the patient for possible admission. However at this time, the pt and his would like to go home. DME ordered and HHC requested. Ct has been removed. Plan for DC tomorrow if CXR stable. Emotional support provided to patient at bedside and plan of care discussed. Discussed with RN at bedside. Discussed pt condition and plan of care with collaborating trauma surgeon. Patient is hemodynamically stable and being managed on the med/surg floor. The trauma team will round each day, and evaluate plan of care on a daily basis. LEFT rib fxs LEFT BOBO/PTX T12 transverse process fx Multiple lumbar transverse and spinous process fxs O2 as needed Supportive care Aggressive pulmonary toileting. 09/09: LEFT CT placement LEFT lateral CT in place to pleura-evac drainage system to water seal CT output - 60 ml/24 hrs CXR shows trace LEFT apical PTX 09/18: L CT removed at bedside without incident. 09/16: CT Chest - CT with minimal pleural thickening and parenchymal opacification. NO PTX. F/U CXR in the AM Pain control Encourage OOB- PT ordered Hgb stable Remarks PATIENT SEEN AND EXAMINED WITH ACTIVITY THERAPIST-AGREE WITH ASSESSMENT AND PLAN DC CT FU CXR IN AM ANTICIPATE DC IN AM DW PATIENT NO FLYING FOR 6 MONTHS Winnie Arzola Sep 18, 2017 11:57 Orin Sorto MD Sep 21, 2017 07:37
[2017-09-18] MEDS: RESP: IPRATROPIUM 0.5 MG/2.5 ML NEB NEB SCH ×2 (16:06→19:21)
[2017-09-18] MEDS: REMOVE OLD PATCH T-DERMAL SCH (18:00)
[2017-09-18] MEDS: ENOXAPARIN SODIUM 40 MG/0.4 ML SYRINGE SQ SCH (22:12)
[2017-09-19 00:13] VITALS: BP 111/75; PULSE 65; RESP 18; TEMP 98.8; O2SAT 99
[2017-09-19] MEDS: traMADol HCL 50 MG TAB PO PRN ×2 (04:51→12:04)
[2017-09-19] MEDS: IBUPROFEN 800 MG TAB PO SCH ×2 (04:51→08:32)
[2017-09-19] MEDS: METHOCARBAMOL 500 MG TAB PO SCH ×2 (05:49→12:07)
--- NOTE | 2017-09-19 06:53 | RADRPT ---
EXAM DATE/TIME: 09/19/2017 05:37 [facility] COMPARISON: CHEST SINGLE AP, September 18, 2017, 5:00. INDICATIONS : Short of breath, follow up post chest tube removal left side MEDICAL HISTORY : hemopneumothorax SURGICAL HISTORY : chest tube ENCOUNTER: Subsequent ACUITY: 1 week PAIN SCORE: 8/10 LOCATION: Left chest FINDINGS: Interval removal of left chest drainage tube. This reaccumulation of left pneumothorax with separati on of visceral and parietal pleura of the left apex measuring 1.5 cm. The pneumothorax extends to th e lower lateral left chest measuring 1.5 cm. Calcified left pleural plaque stable. The right lung i s clear. The heart is normal size. Both hemidiaphragms are well delineated. CONCLUSION: Recurrence of left pneumothorax status post removal of left chest drainage tube, measuring 1.5 cm. Josiah Feliz MD on September 19, 2017 at 6:45 Board Certified Radiologist. This report was verified electronically.
[2017-09-19 08:00] VITALS: BP 128/78; PULSE 65; RESP 17; TEMP 97.2; O2SAT 98
[2017-09-19] MEDS: FAMOTIDINE 20 MG TAB PO SCH (08:31)
[2017-09-19] MEDS: SODIUM CHLORIDE 0.9% FLUSH 10 ML FLUSH IV FLUSH SCH (08:32)
[2017-09-19] MEDS: DOCUSATE SODIUM 50 MG/SENNA 8.6 MG TAB PO SCH (08:32)
[2017-09-19] MEDS: RESP: IPRATROPIUM 0.5 MG/2.5 ML NEB NEB SCH ×2 (08:33→11:26)
[2017-09-19 08:36] VITALS: O2SAT 100
[2017-09-19] MEDS: LACTULOSE SYRUP 20 GM/30 ML CUP PO SCH (08:36)
[2017-09-19] MEDS: MAGNESIUM HYDROXIDE SUSP 30 ML CUP PO SCH (08:36)
[2017-09-19] MEDS: POLYETHYLENE GLYCOL 17 GM PKG PO SCH (08:36)
[2017-09-19 09:23] VITALS: RESP 16
[2017-09-19] MEDS ORDERED: TRAM50 PO (11:04)
[2017-09-19] MEDS ORDERED: METH500T3 PO (11:04)
[2017-09-19] MEDS ORDERED: IBUP1TAB7 PO (11:04)
--- NOTE | 2017-09-19 14:03 | HHI.DS ---
Discharge Summary Admission Date Sep 09, 2017 at 17:03 Discharge Date: Sep 19, 2017 Admitting Diagnosis left hemopneumothorax, multiple rib fractures (1) Hemopneumothorax, left ICD Codes: J94.2 - Hemothorax Status: Acute Brief History S/P Trauma: Fall CBC/BMP: 09/17/17 0348 09/17/17 0348 Significant Findings Laboratory Tests Test 09/17/17 03:48 Red Blood Count 3.57 MIL/MM3 (4.50-5.90) Hemoglobin 11.5 GM/DL (13.0-17.0) Hematocrit 32.9 % (39.0-51.0) Monocytes (%) (Auto) 8.8 % (0.0-8.0) Creatinine 0.59 MG/DL (0.60-1.30) Albumin 2.9 GM/DL (3.4-5.0) Aspartate Amino Transf (AST/SGOT) 58 U/L (15-37) Imaging Last Impressions Chest X-Ray 09/19/17 0600 Signed Impressions: Service Date/Time: Tuesday, September 19, 2017 05:37 - CONCLUSION: Recurrence of left pneumothorax status post removal of left chest drainage tube, measuring 1.5 cm. Josiah Feliz MD Chest CT 09/16/17 0000 Signed Impressions: Service Date/Time: Saturday, September 16, 2017 13:17 - CONCLUSION: Left rib fractures are apparent. Chest tube in place with some minimal pleural thickening and parenchymal opacification but no evidence of pneumothorax. Dc Lyles MD Thoracic Spine CT 09/09/17 1648 Signed Impressions: Service Date/Time: Saturday, September 09, 2017 17:24 - CONCLUSION: Left T12 transverse process fracture and left-sided rib fractures. Small left pneumothorax. Chest tube in place. Primitivo Hayden MD Pelvis X-Ray 09/09/17 1648 Signed Impressions: Service Date/Time: Saturday, September 09, 2017 16:44 - CONCLUSION: 1. No acute fracture or dislocation. Yuan Burton MD Lumbar Spine CT 09/09/17 1648 Signed Impressions: Service Date/Time: Saturday, September 09, 2017 17:24 - CONCLUSION: Multiple left-sided transverse process fractures and multiple spinous process fractures. Central canal diameter within normal limits at all levels. Primitivo Hayden MD Head CT [id number] Signed Impressions: Service Date/Time: Saturday, September 09, 2017 17:12 - CONCLUSION: 1. No acute intracranial abnormality. Yuan Burton MD Cervical Spine CT [id number] Signed Impressions: Service Date/Time: Saturday, September 09, 2017 17:18 - CONCLUSION: Degenerative changes, negative for fracture. Subcutaneous emphysema arising from the left chest wall. Isrrael Mcconnell MD FACR Abdomen/Pelvis CT [id number] Signed Impressions: Service Date/Time: Saturday, September 09, 2017 17:24 - CONCLUSION: Negative for solid organ injury in spite of trauma to the left chest Left rib fractures and transverse process fractures as described above Pelvis intact. Isrrael Mcconnell MD FACR PE at Discharge GENERAL: 41-year-old well-nourished male lying in bed in no acute distress. SKIN: Warm and dry. HEAD: Normocephalic. ENT: No nasal bleeding or discharge. Mucous membranes pink and moist. NECK: Trachea midline. No JVD. CARDIOVASCULAR: Regular rate and rhythm. RESPIRATORY: No accessory muscle use. Lungs are clear to auscultation. Breath sounds equal bilaterally. GASTROINTESTINAL: BS + x 4 quads. Abdomen soft, non-tender, nondistended. MUSCULOSKELETAL: Extremities without cyanosis, or edema. MAEW. + perfused NEUROLOGICAL: Awake and alert. Normal speech. Hospital Course [place]-[place]': Fell off a roof approximately 12-18 feet, landing on the top corner of a door. No LOC. INJURIES: LEFT rib fxs (2-9) LEFT BOBO/PTX T12 transverse process fx Multiple lumbar transverse and spinous process fxs PMHx: migraines 09/09: LEFT CT placement 09/18: LEFT CT removed LEFT rib fxs, LEFT BOBO/PTX, T12 transverse process fx, Multiple lumbar transverse and spinous process fxs Supportive care 09/09: LEFT CT placement 09/18: LEFT CT removed Pulmonary toileting Pain control OOB- No home PT needs CXR today shows 1.5cm PTX today- stable for DC Hgb stable Follow-up with PCP in 1 week Patient is clear from trauma surgery standpoint to safely discharge home. Pt Condition on Discharge: Stable Discharge Disposition: Discharge Home Discharge Instructions DIET: Follow Instructions for: As Tolerated, No Restrictions Activities you can perform: See Additionl Instruction Activities to Avoid: Concussion Sports, Lifting/Bending, Strenuous Activity Other Activity Instructions: No flying for minimum of 3 months. Lisa Cline Sep 19, 2017 14:03
== END 2017-09-19 12:31 | disposition home or self-care (01) | DRG 551 ==
LOC: NEPI 16:44 → NEDA 17:03 → N03B 17:41 → N06B 09-11 12:36
PROVIDERS: ADMIT Surgery; ATTEND Surgery
PROC: 0W9B30Z Drainage of Left Pleural Cavity with Drainage Device, Percutaneous Approach (ICD-10-PCS; principal; 2017-09-09)
DX: S32.018A Other fracture of first lumbar vertebra, initial encounter for closed fracture (principal); S27.2XXA Traumatic hemopneumothorax, initial encounter; S22.088A Other fracture of T11-T12 vertebra, initial encounter for closed fracture; S22.42XA Multiple fractures of ribs, left side, initial encounter for closed fracture; S32.028A Other fracture of second lumbar vertebra, initial encounter for closed fracture; S32.038A Other fracture of third lumbar vertebra, initial encounter for closed fracture; S32.048A Other fracture of fourth lumbar vertebra, initial encounter for closed fracture; S32.058A Other fracture of fifth lumbar vertebra, initial encounter for closed fracture; W13.2XXA Fall from, out of or through roof, initial encounter; Y93.H3 Activity, building and construction; Y92.89 Other specified places as the place of occurrence of the external cause; Y99.0 Civilian activity done for income or pay; R11.0 Nausea; T40.2X5A Adverse effect of other opioids, initial encounter; Y92.230 Patient room in hospital as the place of occurrence of the external cause; G43.909 Migraine, unspecified, not intractable, without status migrainosus
CPT/HCPCS: 32551; 70450; 71045; 71250; 71260; 72125; 72129; 72132; 72170; 74177; 80048; 80053; 82435; 82565; 82947; 84132; 84295; 84520; 85025; 85610; 85730; 86850; 86900; 86901; 87641; 90471; 90715; 94150; 94640; 94667; 94668; 96374; 96375; 99152; 99153; 99291; G0390; J0690; J1170; J1650; J1885; J2405; J3010; J7030; J7644; Q9967